=== PATIENT | male | born 1950 | race Caucasian/White ===

== ENCOUNTER → 2023-03-19 15:34 | Outpatient (CLI) | payer MEDICARE, SELFPAY ==
[2023-03-19 16:52] LABS: Add Manual Diff / Slide Review NO; Basophils Absolute Auto 100 /uL (0-100); Basophils Percent Auto 1.1 % (0-2); Eosinophils Absolute Auto 200 /uL (0-450); Hematocrit 38.9 % (41-53); Hemoglobin 13.3 g/dL (13.5-17.5); Lymphocytes Absolute Auto 1400 /uL (1100-4500); Lymphocytes Percent Auto 18.5 % (25-40); Mean Corpuscular HGB Conc 34.1 % (30-36); Mean Corpuscular Volume 85.1 fL (80-100); Monocytes Absolute Auto 500 /uL (0-900); Monocytes Percent Auto 7.4 % (3-14); Neutrophils Absolute Auto 5200 /uL (1500-7000); Platelet Count 246 X10^3/uL (150-400); Red Blood Cell Count 4.57 X10^6/uL (4.5-5.9); Red Cell Distribution Width 13.5 % (11.6-14.8); White Blood Cell Count 7.4 X10^3/uL (4.5-11.0)
[2023-03-19 17:03] LABS: Hemoglobin A1C% w Est Avg Glu 6.7 % (4.0-6.0)
[2023-03-19 17:09] LABS: Alanine Aminotransferase 22 IU/L (<50); Albumin 4.2 g/dL (3.5-5.0); Albumin Globulin Ratio 1.4 (1.0-2.8); Alkaline Phosphatase 68 U/L (38-126); Aspartate Aminotransferase 24 IU/L (17-59); BUN Creatinine Ratio 21.3 (6-22); Bilirubin Total 0.5 mg/dL (0.2-1.3); Blood Urea Nitrogen 20 mg/dL (9-20); Calcium 9.7 mg/dL (8.4-10.2); Carbon Dioxide 26 mmol/L (22-32); Chloride 104 mmol/L (98-107); Estimated Glomerular Filt Rate > 60 mL/min (>60); Glucose 104 mg/dL (80-110); HEMOLYSIS < 15 (0-50); Potassium 4.6 mmol/L (3.4-5.1); Sodium 138 mmol/L (137-145); Total Protein 7.2 g/dL (6.3-8.2)
[2023-03-19 18:34] LABS: Microalbumi Creatinin Ratio Ur 6.2 ug/mg CR (<30); Microalbumin Urine Random 0.6 mg/dL (0-1.6)
[2023-03-19 20:52] LABS: TSH w/ Reflex to FT4 1.38 uIU/mL (0.47-4.68)
== END ==
PROVIDERS: PCP Family Medicine; Referring Provider Family Medicine; Visit Provider Family Medicine
DX: E11.65 Type 2 diabetes mellitus with hyperglycemia (principal); I10 Essential (primary) hypertension; E78.5 Hyperlipidemia, unspecified; R53.83 Other fatigue; R63.4 Abnormal weight loss; R10.11 Right upper quadrant pain
CPT/HCPCS: 36415; 80053; 82043; 82570; 83036; 84443; 85025

== ENCOUNTER → 2023-03-22 11:22 | Outpatient (CLI) | payer MEDICARE, SELFPAY ==
--- NOTE | 2023-03-22 11:24 | DI.CT.S_ITS ---
PROCEDURE: CT ABDOMEN PELVIS W CON INDICATIONS: Upper abdominal pain. TECHNIQUE: After the administration of oral and IV contrast, axial sections were acquired from the lung bases to the pubic symphysis. Coronal and sagittal reformats were performed. For radiation dose reduction, the following was used: automated exposure control, adjustment of mA and/or kV according to patient size. COMPARISON: None. FINDINGS: Image quality: Excellent. Lung bases: Moderate left pleural effusion. Left basilar consolidation or atelectasis. Small hiatal hernia. Heart: No significant findings. ABDOMEN: Liver: There is a 1.2 cm cyst in the right hepatic lobe. No solid mass. Normal size. Mild hepatic steatosis. Gallbladder: No radiopaque gallstones or wall thickening. Biliary ducts: No biliary dilation. Pancreas: No ductal dilation. Spleen: Size is within normal limits. Adrenal Glands: No adrenal nodules. Kidneys and Ureters: A 2 mm nonobstructive stone is suspected in the inferior pole of the right kidney. No hydronephrosis. No solid mass. No complex renal cystic lesion which requires follow up. Stomach and Bowel: Stomach is unremarkable. Normal small bowel and colonic caliber, without significant wall thickening. Peritoneum: No abnormal intraperitoneal fluid. No free air. Ventral Wall: No hernia. Abdominal Nodes: No retroperitoneal or mesenteric adenopathy by size criteria. Vessels: Aorta and inferior vena cava are normal in size. PELVIS: Pelvic Organs: Unremarkable. Bladder: Unremarkable. Pelvic Nodes: No enlarged lymph nodes. Miscellaneous: No inguinal hernias are seen. Bones: Unremarkable. IMPRESSION: 1. Moderate left pleural effusion. Left basilar opacity may be pneumonia or atelectasis. 2. No acute abnormalities in abdomen or pelvis. 3. Mild hepatic steatosis. 4. A 2 mm nonobstructive right renal stone. Dictated by: Kaushik Peterson M.D. on 03/22/2023 at 13:59 Approved by: Kaushik Peterson M.D. on 03/22/2023 at 20:43
[2023-03-22 12:39] LABS: Cholesterol 130 mg/dL (140-199); HDL Cholesterol 37 mg/dL (40-60); LDL Cholesterol Calculated 75 mg/dL (<100); Triglycerides 89 mg/dL (35-150)
== END ==
PROVIDERS: PCP Family Medicine; Referring Provider Family Medicine; Visit Provider Family Medicine
DX: J90 Pleural effusion, not elsewhere classified (principal); K76.0 Fatty (change of) liver, not elsewhere classified; N20.0 Calculus of kidney; K44.9 Diaphragmatic hernia without obstruction or gangrene; R10.11 Right upper quadrant pain; E11.65 Type 2 diabetes mellitus with hyperglycemia; I10 Essential (primary) hypertension; E78.5 Hyperlipidemia, unspecified; R53.82 Chronic fatigue, unspecified; R63.4 Abnormal weight loss
CPT/HCPCS: 36415; 74177; 80061; Q9967

== ENCOUNTER → 2023-03-25 09:46 | Outpatient (CLI) | payer MEDICARE, SELFPAY ==
--- NOTE | 2023-03-25 09:47 | DI.RAD.S_ITS ---
PROCEDURE: XR CHEST 3V INDICATIONS: Left pleural effusion TECHNIQUE: 3 views of the chest were acquired. COMPARISON: [facility], CT, CT ABDOMEN PELVIS W CON, 03/22/2023, 12:55. FINDINGS: Surgical changes and devices: None. Lungs and pleura: Moderate partially layering left pleural effusion with compressive atelectasis in the left lung base. Right lung is clear. Mediastinum: Mediastinal contours are normal. Heart size is normal. Bones and chest wall: No suspicious bony abnormalities. Soft tissues appear unremarkable. IMPRESSION: Moderate partially layering left pleural effusion with compressive atelectasis in the left lung base. Dictated by: Simeon Gore M.D. on 03/25/2023 at 12:51 Approved by: Simeon Gore M.D. on 03/25/2023 at 12:52
== END ==
PROVIDERS: PCP Family Medicine; Referring Provider Family Medicine; Visit Provider Family Medicine
DX: J90 Pleural effusion, not elsewhere classified (principal); J98.11 Atelectasis
CPT/HCPCS: 71047

== ENCOUNTER 2023-03-28 14:06 | Emergency (ER) | payer MEDICARE, SELFPAY ==
[2023-03-28] VITALS (9 sets, daily range): BP systolic 115–133; BP diastolic 60–71; PULSE 82–93; RESP 17–18; TEMP 36.5; O2SAT 95–99; BMI 25.8
--- NOTE | 2023-03-28 14:23 | DI.RAD.S_ITS ---
PROCEDURE: XR CHEST 1V INDICATIONS: Shortness of breath TECHNIQUE: One view of the chest was acquired. COMPARISON: [facility], , XR CHEST 3V, 03/25/2023, 10:16. FINDINGS: Surgical changes and devices: None. Lungs and pleura: Moderate left pleural effusion appears mildly increased compared to prior. There is adjacent atelectasis versus consolidation. The right lung is clear. Mediastinum: Mediastinal contours appear normal. Heart size is normal. Bones and chest wall: No suspicious bony lesions. Overlying soft tissues appear unremarkable. IMPRESSION: Moderate left pleural effusion appears mildly increased compared to prior with adjacent atelectasis versus consolidation. Dictated by: Lorenzo Nixon M.D. on 03/28/2023 at 14:59 Approved by: Lorenzo Nixon M.D. on 03/28/2023 at 15:01
[2023-03-28 14:48] LABS: Add Manual Diff / Slide Review NO; Basophils Absolute Auto 100 /uL (0-100); Basophils Percent Auto 0.8 % (0-2); Eosinophils Absolute Auto 100 /uL (0-450); Eosinophils Percent Auto 1.4 % (2-4); Hematocrit 40.3 % (41-53); Hemoglobin 13.8 g/dL (13.5-17.5); Lymphocytes Absolute Auto 1100 /uL (1100-4500); Lymphocytes Percent Auto 11.6 % (25-40); Mean Corpuscular HGB Conc 34.2 % (30-36); Mean Corpuscular Hemoglobin 28.5 PG (26-34); Mean Corpuscular Volume 83.4 fL (80-100); Monocytes Absolute Auto 700 /uL (0-900); Monocytes Percent Auto 7.9 % (3-14); Neutrophils Absolute Auto 7400 /uL (1500-7000); Neutrophils Percent Auto 78.3 % (50-75); Platelet Count 249 X10^3/uL (150-400); Red Blood Cell Count 4.83 X10^6/uL (4.5-5.9); Red Cell Distribution Width 13.5 % (11.6-14.8); White Blood Cell Count 9.4 X10^3/uL (4.5-11.0)
[2023-03-28 14:58] LABS: INR 1.2 (0.9-1.3); Prothrombin Time 13.5 SECONDS (9.4-12.5)
[2023-03-28 15:02] LABS: Lactate (Lactic Acid) 1.1 mmol/L (0.7-2.1)
[2023-03-28 15:04] LABS: Alanine Aminotransferase 16 IU/L (<50); Albumin 4.2 g/dL (3.5-5.0); Albumin Globulin Ratio 1.2 (1.0-2.8); Alkaline Phosphatase 77 U/L (38-126); Aspartate Aminotransferase 19 IU/L (17-59); BUN Creatinine Ratio 23.6 (6-22); Bilirubin Total 0.6 mg/dL (0.2-1.3); Blood Urea Nitrogen 21 mg/dL (9-20); Calcium 9.5 mg/dL (8.4-10.2); Carbon Dioxide 26 mmol/L (22-32); Chloride 101 mmol/L (98-107); Estimated Glomerular Filt Rate > 60 mL/min (>60); Globulin 3.4 g/dL (1.7-4.1); Glucose 146 mg/dL (80-110); HEMOLYSIS < 15 (0-50); Potassium 4.9 mmol/L (3.4-5.1); Sodium 135 mmol/L (137-145); Total Protein 7.6 g/dL (6.3-8.2)
--- NOTE | 2023-03-28 15:12 | ED_ITS ---
HPI - General Adult General Chief complaint: Shortness of Breath/Dyspnea Stated complaint: states fluid in lungs worsening Time Seen by Provider: 03/28/23 15:11 Source: patient Mode of arrival: Ambulatory History of Present Illness HPI narrative: Patient is a 73-year-old male. He is here for evaluation of discomfort in the left side of his chest. This has been going on for several days. It is causing him to be short of breath. He has seen his primary doctor. Had a CT scan of his abdomen performed. A subsequent chest x-ray shows left-sided pleural effusion. He was scheduled to have this drained tomorrow here at this facility. He states that he just continues to have shortness of breath. Discomfort does seem to come and go. It seems that he is having 2 different pains on the left side of his chest. One of them is reproducible with palpation to his left lateral chest wall. The other 1 is more of a left upper quadrant abdominal pain. He was just very anxious about the symptoms. He was concerned that maybe he could not make it until tomorrow to get the thoracentesis. He denies fever. He does have a dry cough that is not new. Related Data Home Medications Medication Instructions Recorded Confirmed cyclobenzaprine 5 mg tablet 5 mg PO BEDTIME 03/19/23 03/19/23 Previous Rx's Medication Instructions Recorded atorvastatin 10 mg tablet 10 mg PO DAILY cholesterol #90 tabs 03/19/23 lisinopril 20 mg tablet 20 mg PO DAILY blood pressure #90 03/19/23 tabs metformin 500 mg tablet,extended 2,000 mg (4 x 500 mg) PO DAILY 03/19/23 release 24hr #360 tabs tramadol 50 mg tablet 50 mg PO Q6H PRN pain #10 tabs 03/28/23 Allergies Allergy/AdvReac Type Severity Reaction Status Date / Time No Known Drug Allergies Allergy Unverified 03/19/23 14:48 Review of Systems Constitutional Constitutional: Reports system reviewed and no additional complaints, except as documented Cardiovascular Cardiovascular: Reports system reviewed and no additional complaints, except as documented Respiratory Respiratory: Reports system reviewed and no additional complaints, except as documented Gastrointestinal Gastrointestinal: Reports system reviewed and no additional complaints, except as documented Integumentary/Breasts Skin/Breast: Reports system reviewed and no additional complaints, except as documented Hematologic/Lymphatic On Anticoagulants: No Patient History Medical History Pleural effusion, left Hiatal hernia Hyperlipidemia Benign essential HTN Type 2 diabetes mellitus with hyperglycemia, without long-term current use of insulin Social History Smoking Status: Former smoker Smoking Status: Former smoker Substance Use Type: marijuana Exam Initial Vital Signs Initial Vital Signs: Vital Signs Temperature 97.7 F 03/28/23 14:13 Pulse Rate 93 H 03/28/23 14:13 Respiratory Rate 18 03/28/23 14:13 Blood Pressure 129/67 03/28/23 14:13 Pulse Oximetry 99 03/28/23 14:13 Oxygen Delivery Method Room Air 03/28/23 14:13 Const General: cooperative, comfortable and No ill appearing HENMT Head: normal to inspection and normocephalic Chest Other: Rather pinpoint tenderness to palpation left mid/anterior axillary line along the ribs. Resp Effort & Inspection: normal respiratory effort Auscultation: clear to auscultation bilaterally Cardio Rate: regular rate Rhythm: regular rhythm GI Inspection: normal to inspection and non-distended Palpation: soft, No firm, No guarding and No tender Skin General: no rashes or lesions noted Neuro General: patient alert, patient awake and moves all extremities Extrem General: capillary refill normal Course Orders Ordered: ED Orders 03/28/23 14:23 XR chest 1V Stat Measure peak expiratory flow ONCE RT Consult Eval and Treat NOW 03/28/23 14:29 EKG-12 Lead Stat 03/28/23 14:35 Complete Blood Count AUTO DIFF Stat Comprehensive Metabolic Panel Stat Lactate (Lactic Acid) Stat NT-proBNP (BNP-Adult 18+) Stat Prothrombin Time INR Stat Troponin I Stat Vital Signs Vital signs: Vital Signs - 8 hr 03/28/23 14:13 03/28/23 14:23 03/28/23 14:23 Temperature 97.7 F Pulse Rate 93 H 92 H Respiratory Rate 18 Blood Pressure 129/67 133/71 Pulse Oximetry 99 97 Oxygen Delivery Method Room Air 03/28/23 14:30 03/28/23 15:00 03/28/23 15:30 Temperature Pulse Rate 90 86 84 Respiratory Rate 18 Blood Pressure Pulse Oximetry 97 96 95 Oxygen Delivery Method 03/28/23 16:00 Temperature Pulse Rate 82 Respiratory Rate 17 Blood Pressure Pulse Oximetry 95 Oxygen Delivery Method Room Air Medical Decision Making Lab Data Lab results reviewed: Yes I reviewed the patient's lab results. 03/28/23 14:35 03/28/23 14:35 Labs: Lab Results 03/28/23 Range/Units 14:35 WBC 9.4 (4.5-11.0) X10^3/uL RBC 4.83 (4.5-5.9) X10^6/uL Hgb 13.8 (13.5-17.5) g/dL Hct 40.3 L (41-53) % MCV 83.4 (80-100) fL MCH 28.5 (26-34) PG MCHC 34.2 (30-36) % RDW 13.5 (11.6-14.8) % Plt Count 249 (150-400) X10^3/uL Neut % (Auto) 78.3 H (50-75) % Lymph % (Auto) 11.6 L (25-40) % Beaver % (Auto) 7.9 (3-14) % Eos % (Auto) 1.4 L (2-4) % Baso % (Auto) 0.8 (0-2) % Neut # (Auto) 7400 H (5752-4052) /uL Lymph # (Auto) 1100 (7361-2734) /uL Beaver # (Auto) 700 (0-900) /uL Eos # (Auto) 100 (0-450) /uL Baso # (Auto) 100 (0-100) /uL PT 13.5 H (9.4-12.5) SECONDS INR 1.2 (0.9-1.3) Sodium 135 L (137-145) mmol/L Potassium 4.9 (3.4-5.1) mmol/L Chloride 101 (98-107) mmol/L Carbon Dioxide 26 (22-32) mmol/L BUN 21 H (9-20) mg/dL Creatinine 0.89 (0.66-1.25) mg/dL Estimated GFR > 60 (>60) mL/min BUN/Creatinine Ratio 23.6 H (6-22) Glucose 146 H (80-110) mg/dL Lactate 1.1 (0.7-2.1) mmol/L Calcium 9.5 (8.4-10.2) mg/dL Total Bilirubin 0.6 (0.2-1.3) mg/dL AST 19 (17-59) IU/L ALT 16 (<50) IU/L Alkaline Phosphatase 77 (38-126) U/L Troponin I < 0.012 (0.01-0.034) ng/mL NT-Pro-B Natriuret Pep < 20 (<125) pg/mL Total Protein 7.6 (6.3-8.2) g/dL Albumin 4.2 (3.5-5.0) g/dL Globulin 3.4 (1.7-4.1) g/dL Albumin/Globulin Ratio 1.2 (1.0-2.8) Imaging Data Chest x-ray: Radiologist's Impression: PROCEDURE: XR CHEST 1V INDICATIONS: Shortness of breath TECHNIQUE: One view of the chest was acquired. COMPARISON: [facility], , XR CHEST 3V, 03/25/2023, 10:16. FINDINGS: Surgical changes and devices: None. Lungs and pleura: Moderate left pleural effusion appears mildly increased compared to prior. There is adjacent atelectasis versus consolidation. The right lung is clear. Mediastinum: Mediastinal contours appear normal. Heart size is normal. Bones and chest wall: No suspicious bony lesions. Overlying soft tissues appear unremarkable. IMPRESSION: Moderate left pleural effusion appears mildly increased compared to prior with adjacent atelectasis versus consolidation. ECG Data Attestation: I personally reviewed and interpreted this ECG as follows: Interpretation: Sinus rhythm Ventricular rate 91 Normal axis Normal QRS Normal QTC No ST T wave changes MDM Narrative Medical decision making narrative: Labs here unremarkable. He is not hypoxic. Not tachypneic. Chest x-ray shows left-sided pleural effusion. He was scheduled to have this drained tomorrow. No skin changes over the area where he is having discomfort which makes zoster unlikely. It does seem to be very localized to his left anterior/mid axillary line mid ribs. Low suspicion for fracture. He is no abdominal tenderness today. We contacted the lab and they were going to run all of the labs that he was required to have tomorrow prior to the drainage of his pleural effusion. He was advised that he needs to continue with this appointment but he does not need to have labs drawn. He was scheduled to see his primary doctor after the labs are drawn. Will discharge patient home with return precautions. He expressed understanding and agreement with plan. Discharge Plan Departure Patient Disposition: Home Clinical Impression: Pleural effusion on left Instructions: DI for Pleural Effusion Activity Restrictions/Additional Instructions: I recommend that you keep your appointment that is scheduled to have the lung fluid drained. Recommend you contact your primary doctor afterwards for a follow-up. Return to the emergency department for new symptoms. Prescriptions: New tramadol 50 mg tablet 50 mg PO Q6H PRN (Reason: pain) Qty: 10 0RF No Action cyclobenzaprine 5 mg tablet 5 mg PO BEDTIME atorvastatin 10 mg tablet 10 mg PO DAILY Qty: 90 3RF lisinopril 20 mg tablet 20 mg PO DAILY Qty: 90 3RF metformin 500 mg tablet extended release 24hr 2,000 mg PO DAILY Qty: 360 3RF Referrals: Ej Espinoza DO [Primary Care Provider] - Stand Alone Forms: Patient Portal/API
[2023-03-28 15:14] LABS: NT-proBNP (BNP-Adult 18+) < 20 pg/mL (<125); Troponin I < 0.012 ng/mL (0.01-0.034)
--- NOTE | 2023-03-28 15:14 | PC.NURSE ---
Pt denies pain at rest, but when he moves pt states having 10/10 shooting pain in his left lower chest. Pain is relieved by leaning over a table. Pt reports living on [facility] and wanting to be evaluated before going [place] and [place].
== END 2023-03-28 16:46 | disposition home or self-care (01) ==
PROVIDERS: Emergency Provider Emergency Medicine; PCP Family Medicine
DX: J90 Pleural effusion, not elsewhere classified (principal); R07.9 Chest pain, unspecified
CPT/HCPCS: 36415; 71045; 80053; 83605; 83880; 84484; 85025; 85610; 93005; 93010; 99284

== ENCOUNTER → 2023-03-29 10:31 | Outpatient (CLI) | payer MEDICARE, SELFPAY ==
[2023-03-29 14:35] LABS: Body Fluid Red Blood Cells 17488 /uL; Body Fluid Tot Nucleated Cells 6335 /uL
[2023-03-29 15:45] LABS: Eosinophils Body Fluid 0 %; Mononuclear WBC Body Fluid 15 %; Polynuclear WBC Body Fluid 77 %
[2023-03-29 15:46] LABS: Other Cells Body Fluid 8 %
[2023-03-29 17:32] LABS: Body Fluid Appearance CLOUDY; Body Fluid Clotted? NO CLOTS PRESENT; Body Fluid Color BLOODY
== END ==
PROVIDERS: PCP Family Medicine; Visit Provider Family Medicine
DX: J90 Pleural effusion, not elsewhere classified (principal)
CPT/HCPCS: 87070; 87075; 87205; 89051

== ENCOUNTER → 2023-03-29 12:30 | Outpatient (CLI) | payer MEDICARE, SELFPAY ==
--- NOTE | 2023-03-29 | DI.RAD.S_ITS ---
PROCEDURE: XR CHEST 2V INDICATIONS: POST THORACENTESIS TECHNIQUE: 2 views of the chest were acquired. COMPARISON: [facility], CT, CT ABDOMEN PELVIS W CON, 03/22/2023, 12:55. [facility], CR, XR CHEST 1V, 03/28/2023, 14:29. FINDINGS: Surgical changes and devices: None. Lungs and pleura: No pneumothorax. Moderate left pleural effusion, decreased. Left lower lobe opacity is stable to decreased. No right pleural effusion. Mediastinum: Mediastinal contours are normal. Heart size is normal. Bones and chest wall: No suspicious bony abnormalities. Soft tissues appear unremarkable. IMPRESSION: No pneumothorax. Moderate left pleural effusion. Dictated by: Mahesh Raines M.D. on 03/29/2023 at 13:48 Approved by: Mahesh Raines M.D. on 03/29/2023 at 13:51
--- NOTE | 2023-03-29 12:32 | DI.US.S_ITS ---
PROCEDURE: US THORACENTESIS INDICATIONS: Lt Pleural effusion TECHNIQUE: The indications, alternatives, benefits, risks, and complications of the procedure were explained to the patient. Written informed consent was obtained and placed in the chart. The chest was examined sonographically, and an appropriate site was chosen for thoracentesis. The skin was prepared and draped in the usual sterile fashion, and 1% lidocaine was infiltrated from the skin down through the pleural surface. A 19-gauge catheter-covered needle was then introduced into the pleural space, the catheter was advanced and the needle was withdrawn, and thereafter pleural fluid was aspirated. The catheter was then removed and a dressing was applied. COMPARISON: [facility], CT, CT ABDOMEN PELVIS W CON, 03/22/2023, 12:55. FINDINGS: Access site: Left hemithorax. Needle: One-Step centesis catheter with introducer needle. Fluid volume and description: 1040 cc clear red tinged Fluid sent for diagnostic testing: Multiple labs pending. Medications: 1% lidocaine for local anaesthesia. Complications: No pneumothorax on post thoracentesis CXR. The patient experienced increased chest pain and nodule post procedure. Patient was evaluated. Oxygen saturations 93%. Heart rate 107. Ultimately the decision was to be evaluated in the emergency room. IMPRESSION: Successful diagnostic and therapeutic ultrasound-guided left thoracentesis. Dictated by: Mahesh Raines M.D. on 03/29/2023 at 14:37 Approved by: Mahesh Raines M.D. on 03/29/2023 at 14:40
== END ==
PROVIDERS: PCP Family Medicine; Referring Provider Family Medicine; Visit Provider Family Medicine
DX: J90 Pleural effusion, not elsewhere classified (principal)
CPT/HCPCS: 32555; 71046

== ENCOUNTER 2023-03-29 14:11 | Emergency (ER) | payer MEDICARE, SELFPAY ==
[2023-03-29] VITALS (19 sets, daily range): BP systolic 107–150; BP diastolic 55–86; PULSE 89–109; RESP 15–23; TEMP 36.8; O2SAT 94–98; BMI 25.8
--- NOTE | 2023-03-29 14:16 | DI.RAD.S_ITS ---
PROCEDURE: XR CHEST 1V INDICATIONS: chest pain, s/p thoracentesis today, left sided 1150ml remov TECHNIQUE: One view of the chest was acquired. COMPARISON: [facility], , XR CHEST 2V, 03/29/2023, 13:40. FINDINGS: Surgical changes and devices: None. Lungs and pleura: Dense atelectasis versus consolidation, left lung base. Small left pleural effusion. No pneumothorax. Findings are not significantly different than the previous study. Mediastinum: Mediastinal contours appear normal. Heart size is normal. Bones and chest wall: No suspicious bony lesions. Overlying soft tissues appear unremarkable. IMPRESSION: Dense atelectasis versus consolidation, left lung base. Small left pleural effusion. No pneumothorax. Dictated by: Simeon Gore M.D. on 03/29/2023 at 14:55 Approved by: Simeon Gore M.D. on 03/29/2023 at 14:56
--- NOTE | 2023-03-29 14:18 | ED.CHESTPAIN ---
HPI - Chest Pain General Chief Complaint: Chest Pain Stated Complaint: Chest Pain post Thoracentesis Time Seen by Provider: 03/29/23 14:16 Source: patient, RN notes reviewed and old records reviewed Mode of arrival: Wheelchair Limitations: no limitations History of Present Illness HPI narrative: 73-year-old male presents with complaint of left-sided pain in his chest. Patient is status post thoracentesis today almost immediately afterwards he had 1142 mL removed which was strawberry colored and promptly began to have increasing left chest pain. Patient seems most uncomfortable when he tries to sit back he prefers to stand. Patient states deep inhalation is quite painful. He states he has not really been coughing. He states he was not having much pain before. He was seen on 03/28/2023 for left-sided chest pain which showed a left pleural effusion with plan for thoracentesis today. No syncope, he has been nauseated but states that is somewhat better. He denies any GI or urinary symptoms. Patient states he was prescribed tramadol but has not started taking any. He is normally on medication for blood pressure, diabetes and dyslipidemia. Denies any drug allergies. Former smoker, does use THC. No other recreational drugs. Related Data Home Medications Medication Instructions Recorded Confirmed cyclobenzaprine 5 mg tablet 5 mg PO BEDTIME 03/19/23 03/19/23 Previous Rx's Medication Instructions Recorded atorvastatin 10 mg tablet 10 mg PO DAILY cholesterol #90 tabs 03/19/23 lisinopril 20 mg tablet 20 mg PO DAILY blood pressure #90 03/19/23 tabs metformin 500 mg tablet,extended 2,000 mg (4 x 500 mg) PO DAILY 03/19/23 release 24hr #360 tabs tramadol 50 mg tablet 50 mg PO Q6H PRN pain #10 tabs 03/28/23 meloxicam 7.5 mg tablet 7.5 mg PO BID PRN pain #10 tabs 03/29/23 oxycodone 5 mg tablet 5 mg PO Q6H PRN pain #7 tabs 03/29/23 Allergies Allergy/AdvReac Type Severity Reaction Status Date / Time No Known Drug Allergies Allergy Verified 03/29/23 14:21 Review of Systems Review of Systems ROS Unobtainable: All systems reviewed & are unremarkable except as noted in HPI and below Patient History Medical History Pleural effusion, left Hiatal hernia Hyperlipidemia Benign essential HTN Type 2 diabetes mellitus with hyperglycemia, without long-term current use of insulin Social History Smoking Status: Former smoker Smoking Status: Former smoker Substance Use Type: marijuana Exam Narrative Exam Narrative: GENERAL: Alert and oriented x three, male in moderate distress. No diaphoresis. HEENT: Head normocephalic, atraumatic, EOMI, pupils reactive, face symmetric, moist mucous membranes NECK: Supple, full range of motion CARDIOVASCULAR: Regular rate and rhythm without murmurs, rubs or gallops. No reproducible chest pain. Patient has a Band-Aid over the left midthoracic. RESPIRATORY: Breath sounds equal bilaterally, no wheezes rales or rhonchi. No tachypnea or accessory muscle use. Patient is able to speak in full sentences. ABDOMEN: Soft, nontender. Normoactive bowel sounds all 4 quadrants. No guarding or rebound, rigidity, no mass : No CVA tenderness BACK: No cervical, thoracic or lumbar vertebral point tenderness. Patient has decreased range of motion, patient is quite uncomfortable any time he tries to sit down he is much more comfortable standing. Patient's gait is antalgic. 5/5 muscle strength upper and lower extremities. EXTREMITIES: Normal range of motion, no clubbing or edema. Neurovascularly intact NEUROLOGICAL: Cranial nerves II through XII grossly intact. Moving all extremities SKIN: Warm, dry, no petechiae, no rashes or lesions. Initial Vital Signs Initial Vital Signs: Vital Signs Temperature 98.2 F 03/29/23 14:11 Pulse Rate 106 H 03/29/23 14:11 Respiratory Rate 21 03/29/23 14:11 Blood Pressure 150/70 H 03/29/23 14:11 Pulse Oximetry 98 03/29/23 14:11 Oxygen Delivery Method Room Air 03/29/23 14:11 Course Orders Ordered: ED Orders 03/29/23 14:16 XR chest 1V Stat 03/29/23 14:17 Type and Screen Stat 03/29/23 14:21 EKG-12 Lead Stat 03/29/23 14:25 Complete Blood Count AUTO DIFF Stat Comprehensive Metabolic Panel Stat Lipase Stat NT-proBNP (BNP-Adult 18+) Stat PTT Partial Thromboplastin [place] Stat Prothrombin Time INR Stat Troponin & CK Cardiac Panel Stat 03/29/23 15:19 CT chest w con Stat Discontinued Medications Sodium Chloride (Normal Saline 0.9%) 1,000 mls @ 1,000 mls/hr IV BOLUS ONE Stop: 03/29/23 15:15 Last Infusion: 03/29/23 15:32 Dose: Infused Documented By: Admin: 03/29/23 14:25 Dose: 1,000 mls/hr Documented By: BS Ketorolac Tromethamine (Ketorolac 30 Mg/Ml Vial) 15 mg IV NOW ONE Stop: 03/29/23 15:22 Last Admin: 03/29/23 15:33 Dose: 15 mg Documented By: RB Morphine Sulfate (Morphine 4 Mg/Ml Inj) 4 mg IV NOW ONE Stop: 03/29/23 14:17 Last Admin: 03/29/23 14:25 Dose: 4 mg Documented By: GEOVANY Morphine Sulfate (Morphine 4 Mg/Ml Inj) 4 mg IV NOW ONE Stop: 03/29/23 14:56 Last Admin: 03/29/23 14:59 Dose: 4 mg Documented By: RB Ondansetron HCl (Ondansetron 4 Mg/2 Ml Inj) 4 mg IV NOW ONE Stop: 03/29/23 14:20 Last Admin: 03/29/23 14:24 Dose: 4 mg Documented By: GEOVANY Vital Signs Vital signs: Vital Signs - 8 hr 03/29/23 14:11 03/29/23 14:18 03/29/23 14:19 Temperature 98.2 F Pulse Rate 106 H 109 H Respiratory Rate 21 Blood Pressure 150/70 H 150/70 H Pulse Oximetry 98 95 Oxygen Delivery Method Room Air 03/29/23 14:19 03/29/23 14:30 03/29/23 14:30 Temperature Pulse Rate 109 H 104 H Respiratory Rate 23 19 Blood Pressure 120/55 L Pulse Oximetry 96 95 Oxygen Delivery Method Room Air 03/29/23 14:45 03/29/23 14:45 03/29/23 15:00 Temperature Pulse Rate 100 H Respiratory Rate 17 Blood Pressure 129/58 L 131/63 Pulse Oximetry 95 Oxygen Delivery Method 03/29/23 15:00 03/29/23 15:15 03/29/23 15:15 Temperature Pulse Rate 101 H 96 H Respiratory Rate 20 15 Blood Pressure 115/57 L Pulse Oximetry 94 Oxygen Delivery Method 03/29/23 15:30 03/29/23 15:38 03/29/23 15:38 Temperature Pulse Rate 98 H 98 H Respiratory Rate 19 19 Blood Pressure 119/86 Pulse Oximetry 95 96 Oxygen Delivery Method 03/29/23 15:44 03/29/23 15:45 03/29/23 15:45 Temperature Pulse Rate 97 H 97 H Respiratory Rate 19 19 Blood Pressure 107/62 Pulse Oximetry 96 95 Oxygen Delivery Method 03/29/23 16:08 03/29/23 16:09 03/29/23 16:09 Temperature Pulse Rate 94 H 92 H Respiratory Rate 17 Blood Pressure 115/55 L Pulse Oximetry 95 95 Oxygen Delivery Method 03/29/23 16:14 03/29/23 16:15 03/29/23 16:15 Temperature Pulse Rate 92 H 92 H Respiratory Rate 16 16 Blood Pressure 115/55 L Pulse Oximetry 95 95 Oxygen Delivery Method 03/29/23 16:30 03/29/23 16:30 03/29/23 16:45 Temperature Pulse Rate 89 Respiratory Rate 15 Blood Pressure 114/55 L 122/64 Pulse Oximetry 95 Oxygen Delivery Method 03/29/23 16:45 03/29/23 17:00 03/29/23 17:05 Temperature 98.2 F Pulse Rate 90 90 Respiratory Rate 16 Blood Pressure Pulse Oximetry 95 Oxygen Delivery Method MDM - Chest Pain Lab Data 03/29/23 14:25 03/29/23 14:25 Labs: Lab Results 03/29/23 Range/Units 14:25 WBC 14.6 H D (4.5-11.0) X10^3/uL RBC 4.83 (4.5-5.9) X10^6/uL Hgb 13.8 (13.5-17.5) g/dL Hct 40.5 L (41-53) % MCV 83.8 (80-100) fL MCH 28.5 (26-34) PG MCHC 34.0 (30-36) % RDW 13.9 (11.6-14.8) % Plt Count 356 (150-400) X10^3/uL Neut % (Auto) 89.1 H (50-75) % Lymph % (Auto) 4.6 L (25-40) % [place] % (Auto) 5.3 (3-14) % Eos % (Auto) 0.2 L (2-4) % Baso % (Auto) 0.8 (0-2) % Neut # (Auto) 86016 H (2554-6216) /uL Lymph # (Auto) 700 L (5982-6007) /uL [place] # (Auto) 800 (0-900) /uL Eos # (Auto) 0 (0-450) /uL Baso # (Auto) 100 (0-100) /uL PT 13.7 H (9.4-12.5) SECONDS INR 1.2 (0.9-1.3) APTT 29 (25.1-36.5) SECONDS Sodium 133 L (137-145) mmol/L Potassium 5.4 H (3.4-5.1) mmol/L Chloride 98 (98-107) mmol/L Carbon Dioxide 25 (22-32) mmol/L BUN 25 H (9-20) mg/dL Creatinine 0.97 (0.66-1.25) mg/dL Estimated GFR > 60 (>60) mL/min BUN/Creatinine Ratio 25.8 H (6-22) Glucose 201 H (80-110) mg/dL Calcium 9.6 (8.4-10.2) mg/dL Total Bilirubin 0.8 (0.2-1.3) mg/dL AST 21 (17-59) IU/L ALT 17 (<50) IU/L Alkaline Phosphatase 90 (38-126) U/L Total Creatine Kinase 53 L (55-170) U/L Troponin I < 0.012 (0.01-0.034) ng/mL NT-Pro-B Natriuret Pep 31 (<125) pg/mL Total Protein 8.1 (6.3-8.2) g/dL Albumin 4.5 (3.5-5.0) g/dL Globulin 3.6 (1.7-4.1) g/dL Albumin/Globulin Ratio 1.3 (1.0-2.8) Lipase 36 (23-300) U/L Imaging Data Chest x-ray: Radiologist's Impression: [address] [address] XRay Report Signed Patient: Blaze Dickinson MR#: [id number] : 1950 Acct:[id number] Age/Sex: 73 / M Date of Service: 03/29/23 Loc: ED Accession Number: [id number] Procedure: XR chest 1V Ordering Provider: Milagro Carnes D.O. PROCEDURE: XR CHEST 1V INDICATIONS: chest pain, s/p thoracentesis today, left sided 1150ml remov TECHNIQUE: One view of the chest was acquired. COMPARISON: [facility], CR, XR CHEST 2V, 03/29/2023, 13:40. FINDINGS: Surgical changes and devices: None. Lungs and pleura: Dense atelectasis versus consolidation, left lung base. Small left pleural effusion. No pneumothorax. Findings are not significantly different than the previous study. Mediastinum: Mediastinal contours appear normal. Heart size is normal. Bones and chest wall: No suspicious bony lesions. Overlying soft tissues appear unremarkable. IMPRESSION: Dense atelectasis versus consolidation, left lung base. Small left pleural effusion. No pneumothorax. Dictated by: Simeon Gore M.D. on 03/29/2023 at 14:55 Approved by: Simeon Gore M.D. on 03/29/2023 at 14:56 CT scan - chest: Radiologist's Impression: [place] [address] CT Scan Report Signed Patient: Blaze Dickinson MR#: [id number] : 1950 Acct:[id number] Age/Sex: 73 / M Date of Service: 03/29/23 Loc: ED Accession Number: [id number] Procedure: CT chest w con Ordering Provider: Milagro Carnes D.O. PROCEDURE: CT CHEST W CON INDICATIONS: Left chest pain, s/p thoracentesis TECHNIQUE: After the administration of intravenous contrast, 5 mm thick sections acquired from the pulmonary apices to the posterior costophrenic angles. 1 mm axial lung, 5 mm thick coronal and sagittal reformats and 7 mm axial MIP were acquired. For radiation dose reduction, the following was used: automated exposure control, adjustment of mA and/or kV according to patient size. COMPARISON: None. FINDINGS: Image quality: Diagnostic. Lower Neck: No enlarged lymph nodes. Thyroid: No thyroid nodules which require sonographic follow up, per consensus guidelines. Axillae: No enlarged lymph nodes. Chest Wall: No abnormal findings in the chest wall. No hematoma.. Bones: Unremarkable. Lungs and Pleura: Small left-sided pleural effusion. No pneumothorax. Passive atelectasis of the left lower lobe and lingula. Heart: Heart size is normal. No pericardial effusion. Thoracic Vessels: The aorta and pulmonary arteries demonstrate normal size. Mediastinum and Judy: No enlarged lymph nodes. Calcified mediastinal and hilar nodes. Esophagus: No wall thickening. No hiatal hernia. Upper Abdomen: Unchanged hypoattenuating liver lesion. IMPRESSION: No abnormal findings in the chest wall. No hematoma. Small left pleural effusion with passive atelectasis of the left lower lobe and lingula. Dictated by: Juan Miguel Garsia M.D. on 03/29/2023 at 16:23 Approved by: Juan Miguel Garsia M.D. on 03/29/2023 at 16:25 ECG Data Attestation: I personally reviewed and interpreted this ECG as follows: Interpretation: Sinus tachycardia rate of 107 MO 160 QRS of 104 QTC of 472. No acute ST elevation or depression noted. MDM Narrative Medical decision making narrative: Patient was brought over from outpatient radiology status post thoracentesis quite painful but seems to be somewhat also positional. Plan for repeat chest x-ray although he did have 1 did not appear to show pneumothorax did appear to show a decrease in his pleural effusion. Labs labs show leukocytosis of 14 otherwise appropriately hemoglobin and platelets. INR is 1.2 sodium is 133 potassium is 5 4 with BUN 25 otherwise appropriate renal function glucose of 201 LFTs are negative. EKG shows sinus tachycardia, this has resolved while patient has been here with fluids. Chest x-ray showed dense atelectasis versus consolidation left lung base, small left pleural effusion no pneumothorax. Patient had CT chest is had persistent significant pain despite several doses of pain medication. CT chest shows some small left pleural effusion with passive atelectasis left lower lobe and lingula. No pneumothorax, no acute bleeding. Patient then received a dose of Toradol has been much more helpful for controlling his pain. Patient has not been hypoxic blood pressure has been appropriate with improved heart rate. Patient is felt appropriate for discharge home with course of pain medication and follow up. Discharge Plan Departure Patient Disposition: Home Clinical Impression: S/P thoracentesis, Chest pain Activity Restrictions/Additional Instructions: Your workup today shows some atelectasis or your lungs still inflating at a small amount of fluid on the left but no pneumothorax, bleed or other significant changes. Please follow-up for recheck. I would recommend Tylenol and/or ibuprofen as needed for pain. If in adequate you can take meloxicam 1 tablet every 12 hours as needed for pain. Do not take ibuprofen or other NSAIDs with this medication. You can take the tramadol that you have been prescribed 1-2 tablets every 6 hours as needed. This is a narcotic but you can take it with the Tylenol and meloxicam. Prescription sent to [facility] in [place]. Please return for new or worsening chest pain, shortness of breath, lightheadedness or passing out, persistent vomiting or other new or concerning changes. Prescriptions: New meloxicam 7.5 mg tablet 7.5 mg PO BID PRN (Reason: pain) Qty: 10 0RF oxycodone 5 mg tablet 5 mg PO Q6H PRN (Reason: pain) Qty: 7 0RF No Action cyclobenzaprine 5 mg tablet 5 mg PO BEDTIME atorvastatin 10 mg tablet 10 mg PO DAILY Qty: 90 3RF lisinopril 20 mg tablet 20 mg PO DAILY Qty: 90 3RF metformin 500 mg tablet extended release 24hr 2,000 mg PO DAILY Qty: 360 3RF tramadol 50 mg tablet 50 mg PO Q6H PRN (Reason: pain) Qty: 10 0RF Referrals: Ej Espinoza DO [Primary Care Provider] - Stand Alone Forms: Patient Portal/API
[2023-03-29] MEDS: ONDANSETRON 4 MG/2 ML INJ IV (14:24)
[2023-03-29] MEDS: MORPHINE 4 MG/ML INJ IV ×2 (14:25→14:59)
[2023-03-29] MEDS: SODIUM CHLORIDE 0.9% 1,000 ML 1000 ML IV (14:25)
[2023-03-29 14:41] LABS: Add Manual Diff / Slide Review NO; Basophils Absolute Auto 100 /uL (0-100); Basophils Percent Auto 0.8 % (0-2); Eosinophils Absolute Auto 0 /uL (0-450); Eosinophils Percent Auto 0.2 % (2-4); Hematocrit 40.5 % (41-53); Hemoglobin 13.8 g/dL (13.5-17.5); Lymphocytes Absolute Auto 700 /uL (1100-4500); Lymphocytes Percent Auto 4.6 % (25-40); Mean Corpuscular Hemoglobin 28.5 PG (26-34); Mean Corpuscular Volume 83.8 fL (80-100); Monocytes Absolute Auto 800 /uL (0-900); Monocytes Percent Auto 5.3 % (3-14); Neutrophils Absolute Auto 13000 /uL (1500-7000); Neutrophils Percent Auto 89.1 % (50-75); Platelet Count 356 X10^3/uL (150-400); Red Blood Cell Count 4.83 X10^6/uL (4.5-5.9); Red Cell Distribution Width 13.9 % (11.6-14.8); White Blood Cell Count 14.6 X10^3/uL (4.5-11.0)
[2023-03-29 14:58] LABS: INR 1.2 (0.9-1.3); Prothrombin Time 13.7 SECONDS (9.4-12.5)
[2023-03-29 15:01] LABS: PTT Partial Thromboplastin Tim 29 SECONDS (25.1-36.5)
[2023-03-29 15:04] LABS: Alanine Aminotransferase 17 IU/L (<50); Albumin 4.5 g/dL (3.5-5.0); Albumin Globulin Ratio 1.3 (1.0-2.8); Alkaline Phosphatase 90 U/L (38-126); Aspartate Aminotransferase 21 IU/L (17-59); BUN Creatinine Ratio 25.8 (6-22); Bilirubin Total 0.8 mg/dL (0.2-1.3); Blood Urea Nitrogen 25 mg/dL (9-20); Calcium 9.6 mg/dL (8.4-10.2); Carbon Dioxide 25 mmol/L (22-32); Chloride 98 mmol/L (98-107); Creatine Kinase 53 U/L (55-170); Estimated Glomerular Filt Rate > 60 mL/min (>60); Globulin 3.6 g/dL (1.7-4.1); Glucose 201 mg/dL (80-110); HEMOLYSIS < 15 (0-50); Lipase 36 U/L (23-300); Potassium 5.4 mmol/L (3.4-5.1); Sodium 133 mmol/L (137-145); Total Protein 8.1 g/dL (6.3-8.2)
[2023-03-29 15:14] LABS: NT-proBNP (BNP-Adult 18+) 31 pg/mL (<125); Troponin I < 0.012 ng/mL (0.01-0.034)
--- NOTE | 2023-03-29 15:19 | DI.CT.S_ITS ---
PROCEDURE: CT CHEST W CON INDICATIONS: Left chest pain, s/p thoracentesis TECHNIQUE: After the administration of intravenous contrast, 5 mm thick sections acquired from the pulmonary apices to the posterior costophrenic angles. 1 mm axial lung, 5 mm thick coronal and sagittal reformats and 7 mm axial MIP were acquired. For radiation dose reduction, the following was used: automated exposure control, adjustment of mA and/or kV according to patient size. COMPARISON: None. FINDINGS: Image quality: Diagnostic. Lower Neck: No enlarged lymph nodes. Thyroid: No thyroid nodules which require sonographic follow up, per consensus guidelines. Axillae: No enlarged lymph nodes. Chest Wall: No abnormal findings in the chest wall. No hematoma.. Bones: Unremarkable. Lungs and Pleura: Small left-sided pleural effusion. No pneumothorax. Passive atelectasis of the left lower lobe and lingula. Heart: Heart size is normal. No pericardial effusion. Thoracic Vessels: The aorta and pulmonary arteries demonstrate normal size. Mediastinum and Judy: No enlarged lymph nodes. Calcified mediastinal and hilar nodes. Esophagus: No wall thickening. No hiatal hernia. Upper Abdomen: Unchanged hypoattenuating liver lesion. IMPRESSION: No abnormal findings in the chest wall. No hematoma. Small left pleural effusion with passive atelectasis of the left lower lobe and lingula. Dictated by: Juan Miguel Garsia M.D. on 03/29/2023 at 16:23 Approved by: Juan Miguel Garsia M.D. on 03/29/2023 at 16:25
[2023-03-29] MEDS: KETOROLAC 30 MG/ML VIAL 15 MG IV (15:33)
== END 2023-03-29 17:05 | disposition home or self-care (01) ==
PROVIDERS: Emergency Provider Emergency Medicine; PCP Family Medicine
DX: R07.9 Chest pain, unspecified (principal); R00.0 Tachycardia, unspecified; J90 Pleural effusion, not elsewhere classified; Z98.890 Other specified postprocedural states
CPT/HCPCS: 32555; 36415; 71045; 71046; 71260; 80053; 82550; 83690; 83880; 84484; 85025; 85610; 85730; 87070; 87075; 87205; 89051; 93005; 93010; 96361; 96374; 96375; 96376; 99284; J1885; J2270; J2405

== ENCOUNTER 2023-03-31 19:36 | Emergency (ER) | payer MEDICARE, SELFPAY ==
[2023-03-31] VITALS (7 sets, daily range): BP systolic 108–143; BP diastolic 57–75; PULSE 88–100; RESP 15–22; TEMP 36.9; O2SAT 91–96; BMI 25.9
--- NOTE | 2023-03-31 20:26 | ED_ITS ---
HPI - General Adult General Chief complaint: Fever Stated complaint: fever, chest pain Time Seen by Provider: 03/31/23 20:00 Source: patient Mode of arrival: Ambulatory History of Present Illness HPI narrative: 73-year-old gentleman with recently diagnosed pleural effusion, thoracentesis on the . He has been having increasing left-sided chest pain, unable to take a deep breath with temperatures in the 100 range and he comes back in for further evaluation. He is not complaining of overt dyspnea beyond pain related unable to fully expand his lungs. He is having no palpitations, no lower extremity edema, no headaches. He notes that he has been significantly constipated. He is currently using meloxicam and oxycodone that is left over from a dental surgery. He has been taking 10 mg every 6 hours and finding that it is inade quate. He does note that he has never had adequate control of his thoracic pain since the thoracentesis on the . Related Data Home Medications Medication Instructions Recorded Confirmed cyclobenzaprine 5 mg tablet 5 mg PO BEDTIME 03/19/23 03/19/23 Previous Rx's Medication Instructions Recorded atorvastatin 10 mg tablet 10 mg PO DAILY cholesterol #90 tabs 03/19/23 lisinopril 20 mg tablet 20 mg PO DAILY blood pressure #90 03/19/23 tabs metformin 500 mg tablet,extended 2,000 mg (4 x 500 mg) PO DAILY 03/19/23 release 24hr #360 tabs tramadol 50 mg tablet 50 mg PO Q6H PRN pain #10 tabs 03/28/23 meloxicam 7.5 mg tablet 7.5 mg PO BID PRN pain #10 tabs 03/29/23 oxycodone 5 mg tablet 5 mg PO Q6H PRN pain #7 tabs 03/29/23 naloxone 4 mg/actuation nasal 4 mg intranasal Q2M #2 ea 03/31/23 spray (Narcan) oxycodone 5 mg tablet 5 - 10 mg (1 - 2 x 5 mg) PO Q6H 03/31/23 PRN pain #60 tabs polyethylene glycol 3350 17 17 g PO DAILY #510 grams 03/31/23 gram/dose oral powder (Miralax) Allergies Allergy/AdvReac Type Severity Reaction Status Date / Time No Known Drug Allergies Allergy Verified 03/29/23 14:21 Review of Systems Review of Systems Narrative: Pertinent positive and negative findings as per HPI Patient History Medical History Pleural effusion, left Hiatal hernia Hyperlipidemia Benign essential HTN Type 2 diabetes mellitus with hyperglycemia, without long-term current use of insulin Social History Smoking Status: Former smoker Smoking Status: Former smoker Substance Use Type: marijuana Exam Initial Vital Signs Initial Vital Signs: Vital Signs Temperature 98.4 F 03/31/23 19:47 Pulse Rate 100 H 03/31/23 19:47 Respiratory Rate 16 03/31/23 19:47 Blood Pressure 143/72 H 03/31/23 19:47 Pulse Oximetry 95 03/31/23 19:47 Oxygen Delivery Method Room Air 03/31/23 19:47 General: Healthy appearing, in pain but Able to give a complete and coherent history. Well-nourished well-developed HEENT: Moist mucous membranes, normal sclera with reactive pupils, Neck: No JVD, supple Respiratory: Lungs with diminished breath sounds on the left. No wheezing rhonchi or rales appreciated Cardiac: Regular rate and rhythm no murmurs no bruits Abdomen: Soft, nontender, good bowel tones, no flank pain Skin: Warm and dry, no rashes Neurologic: Grossly neurologically intact with no obvious asymmetries or abnormalities Extremities: No trauma, well perfused Psych: Cooperative, appropriate insight and affect Course Vital Signs Vital signs: Vital Signs - 8 hr 03/31/23 19:47 03/31/23 20:03 Temperature 98.4 F Pulse Rate 100 H 96 H Respiratory Rate 16 22 Blood Pressure 143/72 H 124/57 L Pulse Oximetry 95 93 Oxygen Delivery Method Room Air Medical Decision Making [facility] Narrative Medical decision making narrative: CC: Pleuritic chest pain Complicating co-morbidities: 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 so accessing care can be challenging Medical records reviewed: Primary care notes with initial findings concerning for pleural effusion reviewed. Chest Imaging studies from 03 22, , [id number] and are all reviewed. Radiology note with thoracentesis, a little over 1 L of pleural fluid removed reviewed. Pathology from thoracentesis is not yet a vailable. G stain showed no organisms or white cells with pleural effusion. Differential considered: Pneumonia, atelectasis, empyema, congestive heart failure, liver failure, renal failure, reaccumulated pleural fluid, Exam documented above, pertinent findings include: Patient is in pain, diminished breath sounds on the left side remainder of exam is benign Lab Test results independently reviewed as above. Pertinent findings: CBC is unremarkable Chemistries are benign, no renal failure and normal liver studies Imaging studies independently reviewed: Chest x-ray from today shows reaccumulating left pleural fluid with no pneumothorax appreciated Treatments: Patient was given Toradol, 1 mg of Dilaudid with pain finally controlled adequately that he was able to use an incentive spirometer and take a fully expanded breath Discussion: 73-year-old gentleman with what likely is malignant pleural effusion reaccumulating and significant left pleuritic chest pain after thoracentesis. No evidence of pneumothorax. No evidence of pneumonia. I believe that the low-grade temperature that he was experiences likely secondary to atelectasis and we reviewed the importance of deep breathing. Pain has been in inadequately controlled, he has had significant constipation. We had a long discussion regarding pain control, use of MiraLax and follow-up. Initial body fluid studies from the do not suggest empyema. I have confirmed that fluid was sent for cytology. Please see detailed instructions below on my suggestions for pain control. Patient will follow up with his primary care doctor to review pathology. Reviewed reasons to return to the emergency department including increasing dyspnea, fevers, confusion or uncontrolled pain. We did discuss hospitalization however I do not think that there is significant benefit that at this time and with shared decision-making we formulated discharge plans. Discharge Plan Departure Patient Disposition: Home Clinical Impression: Pleural effusion, Chest pain, pleuritic Activity Restrictions/Additional Instructions: Thank you for coming in today. I am sorry that you have not been able to get this pleuritic chest pain under control Workup today is reassuring. I do not see evidence of infection or sepsis. Unfortunately, it does look like the pleural fluid that was removed is reaccumulating. You do not have a pneumothorax. For constipation I have given you a dose of Dulcolax this evening. You do need to continue using MiraLax. The correct dose of MiraLax is however many capsules daily are required free to have soft regular stools. You can not overdose on MiraLax. For pain I am going to recommended tiered plan: For the 1st level, please do continue using meloxicam twice a day. This helps with overall inflammation For the 2nd level I am going to recommend 5-10 mg of oxycodone every 6 hours as needed for pain. For the 3rd level, I am going to recommend 2 extra-strength Tylenol at least 2 times day. The Tylenol can augment the meloxicam and oxycodone so that they are more effective Reasons to return to the emergency department include fevers, increasing shortness of breath, confusion or pain that is inadequately controlled You will need to follow-up with your primary care doctor to review pathology results from the thoracentesis Prescriptions: New oxycodone 5 mg tablet 5 - 10 mg PO Q6H PRN (Reason: pain) Qty: 60 0RF naloxone [Narcan] 4 mg/actuation spray,non-aerosol 4 mg intranasal Q2M Qty: 2 0RF Rx Instructions: spray 1 dose into ONE nostril; alternate nostrils w each dose until help arrives polyethylene glycol 3350 [Miralax] 17 gram/dose powder 17 g PO DAILY Qty: 510 1RF No Action cyclobenzaprine 5 mg tablet 5 mg PO BEDTIME atorvastatin 10 mg tablet 10 mg PO DAILY Qty: 90 3RF lisinopril 20 mg tablet 20 mg PO DAILY Qty: 90 3RF metformin 500 mg tablet extended release 24hr 2,000 mg PO DAILY Qty: 360 3RF tramadol 50 mg tablet 50 mg PO Q6H PRN (Reason: pain) Qty: 10 0RF meloxicam 7.5 mg tablet 7.5 mg PO BID PRN (Reason: pain) Qty: 10 0RF oxycodone 5 mg tablet 5 mg PO Q6H PRN (Reason: pain) Qty: 7 0RF Referrals: Ej Espinoza DO [Primary Care Provider] - Stand Alone Forms: Patient Portal/API
--- NOTE | 2023-03-31 20:44 | DI.RAD.S_ITS ---
PROCEDURE: XR CHEST 2V INDICATIONS: post thoracentesis pain TECHNIQUE: 2 views of the chest were acquired. COMPARISON: [facility], , XR CHEST 1V, 03/29/2023, 14:18. FINDINGS: Surgical changes and devices: None. Lungs and pleura: Compared to prior radiograph 03/29/2023, increased size of left pleural effusion with subjacent atelectasis. Right basilar streaky opacities are favored to represent atelectasis. No pneumothorax. Mediastinum: Mediastinal contours are normal. Heart size is normal. Bones and chest wall: No suspicious bony abnormalities. Soft tissues appear unremarkable. IMPRESSION: Compared to prior radiograph 03/29/2023, increased size of left pleural effusion, now large, with subjacent atelectasis. Increased right streaky basilar opacities are favored to represent atelectasis. Dictated by: Aylin Regalado M.D. on 03/31/2023 at 21:23 Approved by: Aylin Regalado M.D. on 03/31/2023 at 21:25
[2023-03-31] MEDS: KETOROLAC 30 MG/ML VIAL 15 MG IV (20:49)
[2023-03-31] MEDS: HYDROMORPHONE 1 MG INJ IV (20:50)
[2023-03-31 21:00] LABS: Add Manual Diff / Slide Review NO; Basophils Absolute Auto 100 /uL (0-100); Basophils Percent Auto 0.9 % (0-2); Eosinophils Absolute Auto 200 /uL (0-450); Eosinophils Percent Auto 2.1 % (2-4); Hematocrit 39.6 % (41-53); Hemoglobin 13.6 g/dL (13.5-17.5); Lymphocytes Absolute Auto 1300 /uL (1100-4500); Lymphocytes Percent Auto 12.5 % (25-40); Mean Corpuscular HGB Conc 34.2 % (30-36); Mean Corpuscular Hemoglobin 28.5 PG (26-34); Mean Corpuscular Volume 83.3 fL (80-100); Monocytes Absolute Auto 900 /uL (0-900); Neutrophils Absolute Auto 7800 /uL (1500-7000); Neutrophils Percent Auto 75.5 % (50-75); Platelet Count 313 X10^3/uL (150-400); Red Blood Cell Count 4.76 X10^6/uL (4.5-5.9); Red Cell Distribution Width 13.6 % (11.6-14.8); White Blood Cell Count 10.3 X10^3/uL (4.5-11.0)
[2023-03-31 21:10] LABS: Alanine Aminotransferase 16 IU/L (<50); Albumin 4.1 g/dL (3.5-5.0); Albumin Globulin Ratio 1.2 (1.0-2.8); Alkaline Phosphatase 69 U/L (38-126); Aspartate Aminotransferase 20 IU/L (17-59); Bilirubin Total 0.7 mg/dL (0.2-1.3); Blood Urea Nitrogen 20 mg/dL (9-20); Carbon Dioxide 25 mmol/L (22-32); Chloride 96 mmol/L (98-107); Estimated Glomerular Filt Rate > 60 mL/min (>60); Globulin 3.3 g/dL (1.7-4.1); Glucose 169 mg/dL (80-110); HEMOLYSIS < 15 (0-50); Potassium 4.8 mmol/L (3.4-5.1); Sodium 132 mmol/L (137-145); Total Protein 7.4 g/dL (6.3-8.2)
[2023-03-31] MEDS: OXYCODONE/APAP 5/325 PREPACK 1 BOTTLE MISC ×2 (22:55)
[2023-03-31] MEDS: OXYCODONE/ACETAMINOPHEN 5/325 TABLET 2 TAB PO (22:58)
[2023-03-31] MEDS: BISACODYL 5 MG TABLET 10 MG PO (23:02)
== END 2023-03-31 23:27 | disposition home or self-care (01) ==
PROVIDERS: Emergency Provider Emergency Medicine; PCP Family Medicine
DX: J90 Pleural effusion, not elsewhere classified (principal); R07.9 Chest pain, unspecified
CPT/HCPCS: 36415; 71046; 80053; 85025; 96374; 96375; 99284; J1170; J1885

== ENCOUNTER 2023-04-01 05:42 | Emergency (ER) | payer MEDICARE, SELFPAY ==
[2023-04-01] VITALS (27 sets, daily range): BP systolic 113–176; BP diastolic 56–84; PULSE 93–115; RESP 11–26; TEMP 37–37.2; O2SAT 88–97; BMI 25.8
--- NOTE | 2023-04-01 05:46 | ED.GENADULT ---
HPI - General Adult <Jana Deshpande MD - Last Filed: 04/07/23 01:40> General Chief complaint: Shortness of Breath/Dyspnea Stated complaint: shakes, wheezing, chest pain was seen yesterday Time Seen by Provider: 04/01/23 05:46 History of Present Illness HPI narrative: 73-year-old man seen last night with left-sided chest pain after thoracentesis on March 29 with newly diagnosed pleural effusion. High concern for neoplastic process as the underlying source for the pleural effusion. Chest x-ray last night showed that the effusion was reaccumulating. He was afebrile and labs were reassuring. Is discharged home with a plan for adequate pain control, incentive spirometry and appropriate follow-up. Over the ensuing 8 hours he has become progressively worse. He awoke this morning at approximately 5:00 a.m., took 2 Percocet and noticed that he was chilled with rigors, now wheezing and feeling weaker and worse. Pain is still present not as severe as it was with initial presentation last night. On arrival tachycardic, has lower oxygen levels and is audibly wheezing all of which is a significant change in the last 8 hours. He is pale and appears sick, again a change in the last 8 hours. He comes in for further evaluation as instructed with discharge last night Related Data Home Medications Medication Instructions Recorded Confirmed cyclobenzaprine 5 mg tablet 5 mg PO BEDTIME 03/19/23 04/01/23 atorvastatin 10 mg tablet 10 mg PO QAM cholesterol 04/01/23 04/01/23 lisinopril 20 mg tablet 20 mg PO QAM blood pressure 04/01/23 04/01/23 metformin 500 mg tablet,extended 1,000 mg PO BID 04/01/23 04/01/23 release 24hr polyethylene glycol 3350 17 17 g PO QAM 04/01/23 04/01/23 gram/dose oral powder (Miralax) Previous Rx's Medication Instructions Recorded tramadol 50 mg tablet 50 mg PO Q6H PRN pain #10 tabs 03/28/23 meloxicam 7.5 mg tablet 7.5 mg PO BID PRN pain #10 tabs 03/29/23 naloxone 4 mg/actuation nasal 4 mg intranasal Q2M #2 ea 03/31/23 spray (Narcan) oxycodone 5 mg tablet 5 - 10 mg (1 - 2 x 5 mg) PO Q6H 03/31/23 PRN pain #60 tabs Allergies Allergy/AdvReac Type Severity Reaction Status Date / Time No Known Drug Allergies Allergy Verified 03/29/23 14:21 Review of Systems <Jana Deshpande MD - Last Filed: 04/07/23 01:40> Review of Systems Narrative: Pertinent positive and negative findings as per HPI Patient History <Jana Deshpande MD - Last Filed: 04/07/23 01:40> Medical History Pleural effusion, left Hiatal hernia Hyperlipidemia Benign essential HTN Type 2 diabetes mellitus with hyperglycemia, without long-term current use of insulin Social History Smoking Status: Former smoker Smoking Status: Former smoker Substance Use Type: marijuana Exam <Jana Deshpande MD - Last Filed: 04/07/23 01:40> Narrative Exam Narrative: General: Pale, rigors, in pain but still Able to give a complete and coherent history. Well-nourished well-developed HEENT: Moist mucous membranes, normal sclera with reactive pupils, Neck: No JVD, supple Respiratory: Lungs with wheezing in all lung tariq and diminished breath sounds in the left base. The wheezing as a significant change Cardiac: Mild tachycardia with no murmurs. The tachycardia is a change Abdomen: Soft, nontender, good bowel tones, no flank pain Skin: Pale, he is not diaphoretic. His color is a change Neurologic: Grossly neurologically intact with no obvious asymmetries or abnormalities Extremities: No trauma, well perfused Psych: Cooperative, appropriate insight and affect Initial Vital Signs Initial Vital Signs: Vital Signs Pulse Rate 115 H 04/01/23 05:48 Blood Pressure 176/84 H 04/01/23 05:48 Pulse Oximetry 92 04/01/23 05:48 <Milagros Perales DO - Last Filed: 04/01/23 15:11> Initial Vital Signs Initial Vital Signs: Vital Signs Pulse Rate 115 H 04/01/23 05:48 Blood Pressure 176/84 H 04/01/23 05:48 Pulse Oximetry 92 04/01/23 05:48 Procedures <Jana Deshpande MD - Last Filed: 04/07/23 01:40> [facility] Procedure Name of Procedure: Thoracentesis Side (if applicable): left Time out performed: Yes Technique/Description of procedure performed: Ultrasound guidance was used to clearly identify large pocket of pleural fluid. Using sterile technique over needle catheter was introduced into the pleural fluid with approximately 1500 cc of dark blood-tinged fluid removed. Samples were sent for culture, Gram stain, cell count, protein, LD Patient tolerated procedure: Well Complications: none Additional Comments: Postprocedure chest x-ray shows better aerated left lung, decreased volume of pleural fluid, no pneumothorax Course <Jana Deshpande MD - Last Filed: 04/07/23 01:40> Orders Ordered: Discontinued Medications Atorvastatin Calcium (Atorvastatin 20 Mg Tablet) 10 mg PO NOW ONE Stop: 04/01/23 08:53 Last Admin: 04/01/23 09:16 Dose: 10 mg Documented By: STEPHANY Hydromorphone HCl (Hydromorphone 0.5 Mg Inj) 0.5 mg IV Q15MIN PRN PRN Reason: Pain, Last Admin: 04/01/23 06:29 Dose: 0.5 mg Documented By: JEAN Piperacillin Sod/Tazobactam (Sod 4.5 gm/ Sodium Chloride) 100 mls @ 200 mls/hr IV NOW ONE Stop: 04/01/23 06:40 Last Infusion: 04/01/23 07:35 Dose: Infused Documented By: Admin: 04/01/23 06:48 Dose: 200 mls/hr Documented By: JEAN Sodium Chloride (Normal Saline 0.9%) 1,000 mls @ 100 mls/hr IV BOLUS ONE Stop: 04/01/23 16:41 Last Infusion: 04/01/23 13:45 Dose: 100 mls/hr Documented By: Admin: 04/01/23 06:48 Dose: 100 mls/hr Documented By: JEAN Piperacillin Sod/Tazobactam (Sod 3.375 gm/ Sodium Chloride) 100 mls @ 25 mls/hr IV Q8H MANUEL Last Infusion: 04/01/23 13:45 Dose: 25 mls/hr Documented By: Admin: 04/01/23 12:38 Dose: 25 mls/hr Documented By: SAMIRA Lisinopril (Lisinopril 10 Mg Tablet) 10 mg PO NOW ONE Stop: 04/01/23 08:53 Last Admin: 04/01/23 09:14 Dose: 10 mg Documented By: STEPHANY Metformin HCl (Metformin Hcl 500 Mg Tablet) 1,000 mg PO 0800 [facility] Last Admin: 04/01/23 09:34 Dose: Not Given Documented By: STEPHANY Metformin HCl (Metformin Hcl 500 Mg Tablet) 1,000 mg PO 0800 [facility], [facility] Last Admin: 04/01/23 09:14 Dose: 1,000 mg Documented By: STEPHANY Ondansetron HCl (Ondansetron 4 Mg/2 Ml Inj) 4 mg IV NOW ONE Stop: 04/01/23 06:31 Last Admin: 04/01/23 06:12 Dose: 4 mg Documented By: JEAN Oxycodone HCl (Oxycodone Ir 5 Mg Tablet) 10 mg PO Q6HR PRN PRN Reason: Pain, Severe (7-10) Stop: 04/02/23 08:51 Last Admin: 04/01/23 09:14 Dose: 10 mg Documented By: STEPHANY Polyethylene Glycol (Polyethylene Glycol 3350 17 Gm Powd.Pack) 17 gm PO NOW ONE Stop: 04/01/23 08:53 Last Admin: 04/01/23 09:13 Dose: 17 gm Documented By: STEPHANY Vital Signs Vital signs: Vital Signs - 8 hr 04/01/23 07:30 04/01/23 07:30 04/01/23 08:00 Temperature Pulse Rate 94 H 94 H Respiratory Rate 12 13 Blood Pressure 127/60 Pulse Oximetry 96 88 L Oxygen Delivery Method Room Air Room Air Oxygen Flow Rate 04/01/23 08:00 04/01/23 08:08 04/01/23 08:30 Temperature Pulse Rate 97 H Respiratory Rate 19 Blood Pressure 127/59 L Pulse Oximetry 95 95 Oxygen Delivery Method Nasal Cannula Oxygen Flow Rate 2 04/01/23 08:30 04/01/23 09:12 04/01/23 09:13 Temperature Pulse Rate 108 H Respiratory Rate Blood Pressure 124/63 136/63 Pulse Oximetry 91 Oxygen Delivery Method Oxygen Flow Rate 04/01/23 09:30 04/01/23 09:30 04/01/23 10:00 Temperature Pulse Rate 96 H 99 H Respiratory Rate 19 19 Blood Pressure 121/81 Pulse Oximetry 94 96 Oxygen Delivery Method Oxygen Flow Rate 04/01/23 10:00 04/01/23 10:30 04/01/23 11:00 Temperature Pulse Rate 96 H 96 H Respiratory Rate 21 15 Blood Pressure 127/58 L Pulse Oximetry 96 96 Oxygen Delivery Method Oxygen Flow Rate 04/01/23 11:30 04/01/23 11:58 04/01/23 11:58 Temperature 99.0 F Pulse Rate 93 H 99 H Respiratory Rate 12 19 Blood Pressure Pulse Oximetry 96 96 Oxygen Delivery Method Oxygen Flow Rate 04/01/23 11:58 04/01/23 12:00 04/01/23 12:00 Temperature Pulse Rate 101 H Respiratory Rate 19 Blood Pressure 122/69 124/60 Pulse Oximetry 96 Oxygen Delivery Method Oxygen Flow Rate 04/01/23 12:31 04/01/23 12:33 04/01/23 12:33 Temperature Pulse Rate 106 H 101 H Respiratory Rate 22 21 Blood Pressure 124/58 L Pulse Oximetry 94 Oxygen Delivery Method Oxygen Flow Rate 04/01/23 13:00 04/01/23 13:00 04/01/23 13:30 Temperature Pulse Rate 107 H Respiratory Rate 21 Blood Pressure 134/61 113/56 L Pulse Oximetry 96 Oxygen Delivery Method Oxygen Flow Rate 04/01/23 13:30 Temperature Pulse Rate 103 H Respiratory Rate 19 Blood Pressure Pulse Oximetry 95 Oxygen Delivery Method Oxygen Flow Rate <Milagros Perales DO - Last Filed: 04/01/23 15:11> Orders Ordered: Discontinued Medications Atorvastatin Calcium (Atorvastatin 20 Mg Tablet) 10 mg PO NOW ONE Stop: 04/01/23 08:53 Last Admin: 04/01/23 09:16 Dose: 10 mg Documented By: STEPHANY Hydromorphone HCl (Hydromorphone 0.5 Mg Inj) 0.5 mg IV Q15MIN PRN PRN Reason: Pain, Last Admin: 04/01/23 06:29 Dose: 0.5 mg Documented By: JEAN Piperacillin Sod/Tazobactam (Sod 4.5 gm/ Sodium Chloride) 100 mls @ 200 mls/hr IV NOW ONE Stop: 04/01/23 06:40 Last Infusion: 04/01/23 07:35 Dose: Infused Documented By: Admin: 04/01/23 06:48 Dose: 200 mls/hr Documented By: JEAN Sodium Chloride (Normal Saline 0.9%) 1,000 mls @ 100 mls/hr IV BOLUS ONE Stop: 04/01/23 16:41 Last Infusion: 04/01/23 13:45 Dose: 100 mls/hr Documented By: Admin: 04/01/23 06:48 Dose: 100 mls/hr Documented By: JEAN Piperacillin Sod/Tazobactam (Sod 3.375 gm/ Sodium Chloride) 100 mls @ 25 mls/hr IV Q8H [facility] Last Infusion: 04/01/23 13:45 Dose: 25 mls/hr Documented By: Admin: 04/01/23 12:38 Dose: 25 mls/hr Documented By: SAMIRA Lisinopril (Lisinopril 10 Mg Tablet) 10 mg PO NOW ONE Stop: 04/01/23 08:53 Last Admin: 04/01/23 09:14 Dose: 10 mg Documented By: STEPHANY Metformin HCl (Metformin Hcl 500 Mg Tablet) 1,000 mg PO 0800 [facility], [facility] Last Admin: 04/01/23 09:34 Dose: Not Given Documented By: STEPHANY Metformin HCl (Metformin Hcl 500 Mg Tablet) 1,000 mg PO 0800 [facility] Last Admin: 04/01/23 09:14 Dose: 1,000 mg Documented By: STEPHANY Ondansetron HCl (Ondansetron 4 Mg/2 Ml Inj) 4 mg IV NOW ONE Stop: 04/01/23 06:31 Last Admin: 04/01/23 06:12 Dose: 4 mg Documented By: JEAN Oxycodone HCl (Oxycodone Ir 5 Mg Tablet) 10 mg PO Q6HR PRN PRN Reason: Pain, Severe (7-10) Stop: 04/02/23 08:51 Last Admin: 04/01/23 09:14 Dose: 10 mg Documented By: STEPHANY Polyethylene Glycol (Polyethylene Glycol 3350 17 Gm Powd.Pack) 17 gm PO NOW ONE Stop: 04/01/23 08:53 Last Admin: 04/01/23 09:13 Dose: 17 gm Documented By: STEPHANY Vital Signs Vital signs: Vital Signs - 8 hr 04/01/23 07:30 04/01/23 07:30 04/01/23 08:00 Temperature Pulse Rate 94 H 94 H Respiratory Rate 12 13 Blood Pressure 127/60 Pulse Oximetry 96 88 L Oxygen Delivery Method Room Air Room Air Oxygen Flow Rate 04/01/23 08:00 04/01/23 08:08 04/01/23 08:30 Temperature Pulse Rate 97 H Respiratory Rate 19 Blood Pressure 127/59 L Pulse Oximetry 95 95 Oxygen Delivery Method Nasal Cannula Oxygen Flow Rate 2 04/01/23 08:30 04/01/23 09:12 04/01/23 09:13 Temperature Pulse Rate 108 H Respiratory Rate Blood Pressure 124/63 136/63 Pulse Oximetry 91 Oxygen Delivery Method Oxygen Flow Rate 04/01/23 09:30 04/01/23 09:30 04/01/23 10:00 Temperature Pulse Rate 96 H 99 H Respiratory Rate 19 19 Blood Pressure 121/81 Pulse Oximetry 94 96 Oxygen Delivery Method Oxygen Flow Rate 04/01/23 10:00 04/01/23 10:30 04/01/23 11:00 Temperature Pulse Rate 96 H 96 H Respiratory Rate 21 15 Blood Pressure 127/58 L Pulse Oximetry 96 96 Oxygen Delivery Method Oxygen Flow Rate 04/01/23 11:30 04/01/23 11:58 04/01/23 11:58 Temperature 99.0 F Pulse Rate 93 H 99 H Respiratory Rate 12 19 Blood Pressure Pulse Oximetry 96 96 Oxygen Delivery Method Oxygen Flow Rate 04/01/23 11:58 04/01/23 12:00 04/01/23 12:00 Temperature Pulse Rate 101 H Respiratory Rate 19 Blood Pressure 122/69 124/60 Pulse Oximetry 96 Oxygen Delivery Method Oxygen Flow Rate 04/01/23 12:31 04/01/23 12:33 04/01/23 12:33 Temperature Pulse Rate 106 H 101 H Respiratory Rate 22 21 Blood Pressure 124/58 L Pulse Oximetry 94 Oxygen Delivery Method Oxygen Flow Rate 04/01/23 13:00 04/01/23 13:00 04/01/23 13:30 Temperature Pulse Rate 107 H Respiratory Rate 21 Blood Pressure 134/61 113/56 L Pulse Oximetry 96 Oxygen Delivery Method Oxygen Flow Rate 04/01/23 13:30 Temperature Pulse Rate 103 H Respiratory Rate 19 Blood Pressure Pulse Oximetry 95 Oxygen Delivery Method Oxygen Flow Rate Medical Decision Making <Jana Deshpande MD - Last Filed: 04/07/23 01:40> Lab Data 04/01/23 06:03 04/01/23 06:03 Labs: Lab Results 04/01/23 04/01/23 04/01/23 Range/Units 06:03 06:18 07:27 WBC 8.6 (4.5-11.0) X10^3/uL RBC 4.90 (4.5-5.9) X10^6/uL Hgb 13.8 (13.5-17.5) g/dL Hct 40.6 L (41-53) % MCV 82.8 (80-100) fL MCH 28.2 (26-34) PG MCHC 34.1 (30-36) % RDW 13.6 (11.6-14.8) % Plt Count 299 (150-400) X10^3/uL Neut % (Auto) 74.0 (50-75) % Lymph % (Auto) 14.6 L (25-40) % [place] % (Auto) 7.9 (3-14) % Eos % (Auto) 2.9 (2-4) % Baso % (Auto) 0.6 (0-2) % Neut # (Auto) 6400 (9886-7690) /uL Lymph # (Auto) 1300 (4215-8535) /uL [place] # (Auto) 700 (0-900) /uL Eos # (Auto) 300 (0-450) /uL Baso # (Auto) 100 (0-100) /uL Sodium 131 L (137-145) mmol/L Potassium 4.5 (3.4-5.1) mmol/L Chloride 97 L (98-107) mmol/L Carbon Dioxide 25 (22-32) mmol/L BUN 23 H (9-20) mg/dL Creatinine 1.12 (0.66-1.25) mg/dL Estimated GFR > 60 (>60) mL/min BUN/Creatinine Ratio 20.5 (6-22) Glucose 178 H (80-110) mg/dL Lactate 1.8 (0.7-2.1) mmol/L Calcium 9.0 (8.4-10.2) mg/dL Total Bilirubin 0.9 (0.2-1.3) mg/dL AST 19 (17-59) IU/L ALT 16 (<50) IU/L Alkaline Phosphatase 72 (38-126) U/L Troponin I < 0.012 (0.01-0.034) ng/mL NT-Pro-B Natriuret Pep 36 (<125) pg/mL Total Protein 7.4 (6.3-8.2) g/dL Albumin 4.1 (3.5-5.0) g/dL Globulin 3.3 (1.7-4.1) g/dL Albumin/Globulin Ratio 1.2 (1.0-2.8) Procalcitonin 0.20 (<0.5) ng/mL Fluid Color Yellow Fluid Appearance Slightly cloudy Fluid RBC 8768 /uL Fld Tot Nucleated Cell 1280 /uL Fluid Polynuclear WBCs 72 % Fluid Mononuclear WBCs 5 % Fluid Eosinophils 2 % Fluid Other Cells 21 % Body Fluid Clot No clots present Fluid Total Protein 4.6 (.) g/dL Fluid LDH 3029 (.) IU/L Chlamy pneumoniae PCR Not detected (Not Detect) Adenovirus (PCR) Not detected (Not Detect) B.parapertussis DNA PCR Not detected (Not Detecte) Coronavirus OC43 (PCR) Not detected (Not Detect) Coronavirus HKU1 (PCR) Not detected (Not Detect) Coronavirus 229E (PCR) Not detected (Not Detect) SARS-CoV-2 (PCR) Not detected (Not Detecte) Coronavirus NL63 (PCR) Not detected (Not Detect) Human Metapneumovir PCR Not detected (Not Detect) Influenza Type A (PCR) Not detected (Not Detect) Influenza Type B (PCR) Not detected (Not Detect) M. pneumoniae (PCR) Not detected (Not Detect) Parainfluenza 1 (PCR) Not detected (Not Detect) Parainfluenza 2 (PCR) Not detected (Not Detect) Parainfluenza 3 (PCR) Not detected (Not Detect) Parainfluenza 4 (PCR) Not detected (Not Detect) RSV (PCR) Not detected (Not Detect) Entero/Rhino (PCR) Not detected (Not Detect) MDM Narrative Medical decision making narrative: CC: Wheezing, increasing pain, dyspnea, tachycardia Complicating co-morbidities: Known left pleural effusion, increasing pain. Evaluated last night with increased accumulation of fluid after thoracentesis on 03/29. Still awaiting pathology Data collected from: patient Medical records reviewed: Please see my note from from 8 hours ago, March 31, 8:00 p.m. Differential considered: Sepsis, empyema, pneumonia, recurrent pleural effusion concern for malignancy, acute coronary syndrome, congestive heart failure Exam documented above, pertinent findings include: Patient appears worse than when discharged approximately 8 hours ago. Pain has been adequately controlled he is currently having rigors, he is pale and he now has wheezing in all ventilated lung tariq which is a significant change Lab Test results independently reviewed as above. Pertinent findings: CBC shows no significant change in white count Chemistries are unchanged, no significant abnormalities and normal renal function Troponin is undetected BNP is low Procalcitonin is not elevated Independently reviewed EKG: Imaging studies independently reviewed: Chest x-ray on arrival this morning shows similar pleural effusion with concern for developing right upper lobe pneumonia. Postprocedure chest x-ray Consultations: Treatments: Thoracentesis for diagnostic and therapeutic purposes. Please see procedure note. Uncomplicated with dark fluid blood-tinged color total of approximately 1500cc removed. Please see procedure note Blood cultures have been obtained, pleural fluid obtained, Zosyn started. Patient is slightly nauseated prior to thoracentesis and Zofran is administered. 0.5 mg is administered near the end of the thoracentesis for pain control Re-evaluations: Patient is increasingly tachypneic and tachycardic as well as hypoxic when compared to visit 8 hours ago. Responds nicely to oxygen per nasal cannula. Discussion: 73-year-old gentleman with recently diagnosed left pleural effusion. CT scan of the chest did not show obvious malignancy. Almost 1100 cc were drained on March 29. He presents last night complaining of increasing pain which was seemingly adequately controlled with narcotics, he was instructed in use of incentive spirometer, no evidence of empyema or sepsis at that time. He returns this morning, approximately 8 hours later looking significantly worse. Chest x-ray prior to thoracentesis today suggests developing right upper lobe pneumonia which is consistent with a increasing wheezing and rhonchi appreciated on exam today. Thoracentesis with 1500 cc removed with sample sent for culture, Gram stain, cell count, LD, total protein. Initial sample from 03/29 was already sent for pathology so cytology was not ordered however additional fluid is available in the lab should that be requested. Care will be turned over to Dr. Olson at change of shift. Anticipate hospital admission. Additional Information: Severe Sepsis Criteria [ x] bacterial source of infection suspected and documented [ ] 2 SIRS Criteria met [ x ] HR >90 [ x] RR >20 [ ] fever or hypothermia [ ] leukocytosis/leukopenia/bandemia [ ] Evidence of at least 1 organ system dysfunction [ ] Lactate > 2 [ ] BP < 90 or MAP <65, >40mm decrease from normal baseline [ ] Creat > 2.0 [ ] T. Bili > 2.0 [ ] platelet count < 100k [ ] altered mental status [ ] mechanical ventilation [ ] provider documentation of severe sepsis Severe Sepsis Determination. the patient has been screened and [ ] DOES meet criteria for severe sepsis [x ] DOES NOT meet criteria for severe sepsis Goal directed treatment Within 3 hours [ x] blood cx drawn prior to abx [ x ] broad spectrum abx started [ x ] lactic acid level checked [ ] lactic redrawn within 6 hours if >2.0 Septic Shock Criteria [ ] lactic > 4 at any time [ ] SBP ,90 or MAP , 65 [ ] documentation of septic shock Time Septic Shock diagnosed: [ ] Septic Shock Determination. the patient has been screened and [ ] DOES meet criteria for septic shock [ ] DOES NOT meet criteria for septic shock Goal directed therapy within 3 hours of septic shock or initial hypotension [ ] 30ml/kg fluid [ ] ABW used [ ] IBW (33.6) used due to BMI > 30 [ ] patient or advocate declining fluid administration after shared decision making conversation Clinical reason for NOT initiating fluid bolus: Within 6 hours (if continued hypotension after fluids or initial lactate >4) [ ] repeat volume status and tissue perfusion assessment documented after fluid bolus was completed at [Date/Time] Must include vital signs, cardiopulmonary exam, capillary refill, peripheral pulse evaluation, skin exam [ ] Initiate vasopressor therapy if persistent hypotension after adequate fluid bolus <Milagros Perales, DO - Last Filed: 04/01/23 15:11> Lab Data Labs: Lab Results 04/01/23 04/01/23 04/01/23 Range/Units 06:03 06:18 07:27 WBC 8.6 (4.5-11.0) X10^3/uL RBC 4.90 (4.5-5.9) X10^6/uL Hgb 13.8 (13.5-17.5) g/dL Hct 40.6 L (41-53) % MCV 82.8 (80-100) fL MCH 28.2 (26-34) PG MCHC 34.1 (30-36) % RDW 13.6 (11.6-14.8) % Plt Count 299 (150-400) X10^3/uL Neut % (Auto) 74.0 (50-75) % Lymph % (Auto) 14.6 L (25-40) % [place] % (Auto) 7.9 (3-14) % Eos % (Auto) 2.9 (2-4) % Baso % (Auto) 0.6 (0-2) % Neut # (Auto) 6400 (1876-7900) /uL Lymph # (Auto) 1300 (5797-6798) /uL [place] # (Auto) 700 (0-900) /uL Eos # (Auto) 300 (0-450) /uL Baso # (Auto) 100 (0-100) /uL Sodium 131 L (137-145) mmol/L Potassium 4.5 (3.4-5.1) mmol/L Chloride 97 L (98-107) mmol/L Carbon Dioxide 25 (22-32) mmol/L BUN 23 H (9-20) mg/dL Creatinine 1.12 (0.66-1.25) mg/dL Estimated GFR > 60 (>60) mL/min BUN/Creatinine Ratio 20.5 (6-22) Glucose 178 H (80-110) mg/dL Lactate 1.8 (0.7-2.1) mmol/L Calcium 9.0 (8.4-10.2) mg/dL Total Bilirubin 0.9 (0.2-1.3) mg/dL AST 19 (17-59) IU/L ALT 16 (<50) IU/L Alkaline Phosphatase 72 (38-126) U/L Troponin I < 0.012 (0.01-0.034) ng/mL NT-Pro-B Natriuret Pep 36 (<125) pg/mL Total Protein 7.4 (6.3-8.2) g/dL Albumin 4.1 (3.5-5.0) g/dL Globulin 3.3 (1.7-4.1) g/dL Albumin/Globulin Ratio 1.2 (1.0-2.8) Procalcitonin 0.20 (<0.5) ng/mL Fluid Color Yellow Fluid Appearance Slightly cloudy Fluid RBC 8768 /uL Fld Tot Nucleated Cell 1280 /uL Fluid Polynuclear WBCs 72 % Fluid Mononuclear WBCs 5 % Fluid Eosinophils 2 % Fluid Other Cells 21 % Body Fluid Clot No clots present Fluid Total Protein 4.6 (.) g/dL Fluid LDH 3029 (.) IU/L Chlamy pneumoniae PCR Not detected (Not Detect) Adenovirus (PCR) Not detected (Not Detect) B.parapertussis DNA PCR Not detected (Not Detecte) Coronavirus OC43 (PCR) Not detected (Not Detect) Coronavirus HKU1 (PCR) Not detected (Not Detect) Coronavirus 229E (PCR) Not detected (Not Detect) SARS-CoV-2 (PCR) Not detected (Not Detecte) Coronavirus NL63 (PCR) Not detected (Not Detect) Human Metapneumovir PCR Not detected (Not Detect) Influenza Type A (PCR) Not detected (Not Detect) Influenza Type B (PCR) Not detected (Not Detect) M. pneumoniae (PCR) Not detected (Not Detect) Parainfluenza 1 (PCR) Not detected (Not Detect) Parainfluenza 2 (PCR) Not detected (Not Detect) Parainfluenza 3 (PCR) Not detected (Not Detect) Parainfluenza 4 (PCR) Not detected (Not Detect) RSV (PCR) Not detected (Not Detect) Entero/Rhino (PCR) Not detected (Not Detect) Imaging Data Chest x-ray: Radiologist's Impression: PROCEDURE: XR CHEST 1V INDICATIONS: New wheezing, reaccumulating pleural effusion TECHNIQUE: One view of the chest was acquired. COMPARISON: [facility], CR, XR CHEST 1V, 04/01/2023, 6:25. [facility], CT, CT CHEST W CON, 03/29/2023, 15:59. [facility], CR, XR CHEST 1V, 03/29/2023, 14:18. [facility], CR, XR CHEST 2V, 03/31/2023, 20:52. FINDINGS: Surgical changes and devices: None. Lungs and pleura: There is a moderately sized left-sided pleural effusion. Low lung volumes are noted. This causes a crowded appearance to the lung markings and limits evaluation. Within the right mid lung, there is worsening infiltrate. Mediastinum: Mediastinal contours appear normal. Heart size is normal. Bones and chest wall: No suspicious bony lesions. Overlying soft tissues appear unremarkable. IMPRESSION: Left-sided pleural effusion, similar to the prior. Worsening right midlung infiltrate. Note: No significant discrepancy from the preliminary report. Dictated by: Bebo Valdivia M.D. on 04/01/2023 at 6:22 CXR #2: Radiologist's Impression: PROCEDURE: XR CHEST 1V INDICATIONS: post thoracentesis TECHNIQUE: One view of the chest was acquired. COMPARISON: [facility], CR, XR CHEST 2V, 03/31/2023, 20:52. [facility], CR, XR CHEST 1V, 04/01/2023, 5:53. FINDINGS: Surgical changes and devices: None. Lungs and pleura: No pneumothorax is seen. The previously seen left-sided pleural effusion is largely resolved, with trace pleural fluid remaining. Poorly defined right midlung infiltrate can be seen. Streaky atelectasis can be seen at the left lung base. Mediastinum: Mediastinal contours appear normal. Heart size is normal. Bones and chest wall: No suspicious bony lesions. Age-appropriate bony degenerative changes are seen. Overlying soft tissues appear unremarkable. IMPRESSION: No post thoracentesis pneumothorax. Nearly resolved left-sided pleural effusion, with left lung base atelectasis. Right midlung infiltrate, which appears worse than on the prior examination, which may be related to a component of atelectasis. Dictated by: Bebo Valdivia M.D. on 04/01/2023 at 6:20 ECG Data Interpretation: Sinus rhythm rate 99 AR interval 180 QRS [address] changes noted MDM Narrative Medical decision making narrative: CC: Wheezing, increasing pain, dyspnea, tachycardia Complicating co-morbidities: Known left pleural effusion, increasing pain. Evaluated last night with increased accumulation of fluid after thoracentesis on 03/29. Still awaiting pathology Data collected from: patient Medical records reviewed: Please see my note from from 8 hours ago, March 31, 8:00 p.m. Differential considered: Sepsis, empyema, pneumonia, recurrent pleural effusion concern for malignancy, acute coronary syndrome, congestive heart failure Exam documented above, pertinent findings include: Patient appears worse than when discharged approximately 8 hours ago. Pain has been adequately controlled he is currently having rigors, he is pale and he now has wheezing in all ventilated lung tariq which is a significant change Lab Test results independently reviewed as above. Pertinent findings: CBC shows no significant change in white count Chemistries are unchanged, no significant abnormalities and normal renal function Troponin is undetected BNP is low Procalcitonin is not elevated Independently reviewed EKG: Imaging studies independently reviewed: Chest x-ray on arrival this morning shows similar pleural effusion with concern for developing right upper lobe pneumonia. Postprocedure chest x-ray Consultations: Treatments: Thoracentesis for diagnostic and therapeutic purposes. Please see procedure note. Uncomplicated with dark fluid blood-tinged color total of approximately 1500cc removed. Please see procedure note Blood cultures have been obtained, pleural fluid obtained, Zosyn started. Patient is slightly nauseated prior to thoracentesis and Zofran is administered. 0.5 mg is administered near the end of the thoracentesis for pain control Re-evaluations: Patient is increasingly tachypneic and tachycardic as well as hypoxic when compared to visit 8 hours ago. Responds nicely to oxygen per nasal cannula. Discussion: 73-year-old gentleman with recently diagnosed left pleural effusion. CT scan of the chest did not show obvious malignancy. Almost 1100 cc were drained on March 29. He presents last night complaining of increasing pain which was seemingly adequately controlled with narcotics, he was instructed in use of incentive spirometer, no evidence of empyema or sepsis at that time. He returns this morning, approximately 8 hours later looking significantly worse. Chest x-ray prior to thoracentesis today suggests developing right upper lobe pneumonia which is consistent with a increasing wheezing and rhonchi appreciated on exam today. Thoracentesis with 1500 cc removed with sample sent for culture, Gram stain, cell count, LD, total protein. Initial sample from 03/29 was already sent for pathology so cytology was not ordered however additional fluid is available in the lab should that be requested. Care will be turned over to Dr. Perales at change of shift. Anticipate hospital admission. Dr. Perales-patient signed out to me by Dr. Kolb I have seen evaluated patient myself. He is had multiple ED visits new left-sided pleural effusion with recurrence in about 3 days. Was drained again today. He is still requiring oxygen despite having a left pleural effusion remove this morning. He is 88% on room air. He has a new right mid lobe infiltrate with fever and chills. Blood work surprisingly is overall reassuring without evidence of sepsis. But he is requiring oxygen. He has been given Zosyn. Does not meet severe sepsis criteria but does meet SIRS. Patient has had chest CT on March 29 which did not show any masses or nodules or lymph nodes. March [address] for left upper quadrant pain which was when left pleural effusion was diagnosed. No masses or enlarged lymph nodes found. 07:45 Dr. Preciado updated on test results concern for pneumonia hypoxia recurrent pleural effusion. Recommends transferred for recurrent pleural effusion 8:45 Dr. Christy, pulmonology [facility], updated on results, agrees patient would benefit from PleurX catheter, and probably CVT evaluation.confirmed CVT would be available 11:30 Dr. Varma, [facility] updated patient's symptoms test results and accepts patient Discharge Plan Departure Patient Disposition: [facility] Clinical Impression: Pleural effusion Right upper lobe pneumonia Qualifiers: Pneumonia type: due to unspecified organism Qualified Code(s): J18.9 - Pneumonia, unspecified organism Prescriptions: No Action cyclobenzaprine 5 mg tablet 5 mg PO BEDTIME tramadol 50 mg tablet 50 mg PO Q6H PRN (Reason: pain) Qty: 10 0RF meloxicam 7.5 mg tablet 7.5 mg PO BID PRN (Reason: pain) Qty: 10 0RF oxycodone 5 mg tablet 5 - 10 mg PO Q6H PRN (Reason: pain) Qty: 60 0RF naloxone [Narcan] 4 mg/actuation spray,non-aerosol 4 mg intranasal Q2M Qty: 2 0RF Rx Instructions: spray 1 dose into ONE nostril; alternate nostrils w each dose until help arrives lisinopril 20 mg tablet 20 mg PO QAM metformin 500 mg tablet extended release 24hr 1,000 mg PO BID atorvastatin 10 mg tablet 10 mg PO QAM polyethylene glycol 3350 [Miralax] 17 gram/dose powder 17 g PO QAM Referrals: Ej Espinoza DO [Primary Care Provider] - ED Sign-out <Jana Deshpande MD - Last Filed: 04/07/23 01:40> Cosign ED Attending Cosignature Attestation: I was immediately available in the department for consultation throughout this patient's visit. Jana Deshpande MD
--- NOTE | 2023-04-01 05:56 | DI.RAD.S_ITS ---
PROCEDURE: XR CHEST 1V INDICATIONS: New wheezing, reaccumulating pleural effusion TECHNIQUE: One view of the chest was acquired. COMPARISON: [facility], CR, XR CHEST 1V, 04/01/2023, 6:25. [facility], CT, CT CHEST W CON, 03/29/2023, 15:59. [facility], CR, XR CHEST 1V, 03/29/2023, 14:18. [facility], CR, XR CHEST 2V, 03/31/2023, 20:52. FINDINGS: Surgical changes and devices: None. Lungs and pleura: There is a moderately sized left-sided pleural effusion. Low lung volumes are noted. This causes a crowded appearance to the lung markings and limits evaluation. Within the right mid lung, there is worsening infiltrate. Mediastinum: Mediastinal contours appear normal. Heart size is normal. Bones and chest wall: No suspicious bony lesions. Overlying soft tissues appear unremarkable. IMPRESSION: Left-sided pleural effusion, similar to the prior. Worsening right midlung infiltrate. Note: No significant discrepancy from the preliminary report. Dictated by: Bebo Valdivia M.D. on 04/01/2023 at 6:22 Approved by: Bebo Valdivia M.D. on 04/01/2023 at 6:24
[2023-04-01] MEDS: ONDANSETRON 4 MG/2 ML INJ IV (06:12)
[2023-04-01 06:16] LABS: Add Manual Diff / Slide Review NO; Basophils Absolute Auto 100 /uL (0-100); Basophils Percent Auto 0.6 % (0-2); Eosinophils Absolute Auto 300 /uL (0-450); Eosinophils Percent Auto 2.9 % (2-4); Hematocrit 40.6 % (41-53); Hemoglobin 13.8 g/dL (13.5-17.5); Lymphocytes Absolute Auto 1300 /uL (1100-4500); Lymphocytes Percent Auto 14.6 % (25-40); Mean Corpuscular HGB Conc 34.1 % (30-36); Mean Corpuscular Hemoglobin 28.2 PG (26-34); Mean Corpuscular Volume 82.8 fL (80-100); Monocytes Absolute Auto 700 /uL (0-900); Monocytes Percent Auto 7.9 % (3-14); Neutrophils Absolute Auto 6400 /uL (1500-7000); Platelet Count 299 X10^3/uL (150-400); Red Cell Distribution Width 13.6 % (11.6-14.8); White Blood Cell Count 8.6 X10^3/uL (4.5-11.0)
[2023-04-01 06:29] LABS: Alanine Aminotransferase 16 IU/L (<50); Albumin 4.1 g/dL (3.5-5.0); Albumin Globulin Ratio 1.2 (1.0-2.8); Alkaline Phosphatase 72 U/L (38-126); Aspartate Aminotransferase 19 IU/L (17-59); BUN Creatinine Ratio 20.5 (6-22); Bilirubin Total 0.9 mg/dL (0.2-1.3); Blood Urea Nitrogen 23 mg/dL (9-20); Carbon Dioxide 25 mmol/L (22-32); Chloride 97 mmol/L (98-107); Estimated Glomerular Filt Rate > 60 mL/min (>60); Globulin 3.3 g/dL (1.7-4.1); Glucose 178 mg/dL (80-110); HEMOLYSIS < 15 (0-50); Potassium 4.5 mmol/L (3.4-5.1); Sodium 131 mmol/L (137-145); Total Protein 7.4 g/dL (6.3-8.2)
[2023-04-01] MEDS: HYDROMORPHONE 0.5 MG INJ IV (06:29)
[2023-04-01 06:30] LABS: Lactate (Lactic Acid) 1.8 mmol/L (0.7-2.1)
--- NOTE | 2023-04-01 06:31 | DI.RAD.S_ITS ---
PROCEDURE: XR CHEST 1V INDICATIONS: post thoracentesis TECHNIQUE: One view of the chest was acquired. COMPARISON: [facility], CR, XR CHEST 2V, 03/31/2023, 20:52. [facility], CR, XR CHEST 1V, 04/01/2023, 5:53. FINDINGS: Surgical changes and devices: None. Lungs and pleura: No pneumothorax is seen. The previously seen left-sided pleural effusion is largely resolved, with trace pleural fluid remaining. Poorly defined right midlung infiltrate can be seen. Streaky atelectasis can be seen at the left lung base. Mediastinum: Mediastinal contours appear normal. Heart size is normal. Bones and chest wall: No suspicious bony lesions. Age-appropriate bony degenerative changes are seen. Overlying soft tissues appear unremarkable. IMPRESSION: No post thoracentesis pneumothorax. Nearly resolved left-sided pleural effusion, with left lung base atelectasis. Right midlung infiltrate, which appears worse than on the prior examination, which may be related to a component of atelectasis. Dictated by: Bebo Valdivia M.D. on 04/01/2023 at 6:20 Approved by: Bebo Valdivia M.D. on 04/01/2023 at 6:22
--- NOTE | 2023-04-01 06:40 | PC.NURSE ---
0612 Zofran IV 4 mg provided 0615 Procedure Time Out with MD Deshpande, RN Lexie, RN Etta 0618 started procedure 06 60 cc Pleural fluid collected and walked to Lab. 800 cc pleural fluid from 1st canister and 2nd canister placed 06 8/10 chest pain during procedure MD requested 0.5 mg Dilaudid IV provided. 0631 Procedure completed. 2nd canister emptied 500 cc pleural fluid. 0634 Repeat Xray portable of chest at bedside. NS IV fluids at 100 ml/hr. Water PO provided. Tolerated procedure well. Supportive Oxygen 2L NC placed.
[2023-04-01 06:41] LABS: NT-proBNP (BNP-Adult 18+) 36 pg/mL (<125); Troponin I < 0.012 ng/mL (0.01-0.034)
[2023-04-01 06:46] LABS: Body Fluid Red Blood Cells 8768 /uL; Body Fluid Tot Nucleated Cells 1280 /uL
[2023-04-01] MEDS: PIPERACILLIN/TAZO 4.5 GM in SODIUM CHLORIDE 0.9% 100 ML IV (06:48)
[2023-04-01] MEDS: SODIUM CHLORIDE 0.9% 1,000 ML 100 ML IV (06:48)
[2023-04-01 07:09] LABS: Body Fluid Appearance SLIGHTLY CLOUDY; Body Fluid Color YELLOW
[2023-04-01 07:10] LABS: Body Fluid Clotted? NO CLOTS PRESENT; Mononuclear WBC Body Fluid 5 %; Polynuclear WBC Body Fluid 72 %
[2023-04-01 07:11] LABS: Eosinophils Body Fluid 2 %; Other Cells Body Fluid 21 %
[2023-04-01 08:23] LABS: Adenovirus Not Detected (Not Detect); B. parapertussis Not Detected (Not Detecte); Bordetella pertussis Not Detected (Not Detect); Chlamydophila pneumoniae Not Detected (Not Detect); Coronavirus 229E Not Detected (Not Detect); Coronavirus HKU1 Not Detected (Not Detect); Coronavirus NL 63 Not Detected (Not Detect); Coronavirus OC43 Not Detected (Not Detect); Human Metapneumovirus Not Detected (Not Detect); Human Rhinovirus/Enterovirus Not Detected (Not Detect); Influenza A Not Detected (Not Detect); Influenza B Not Detected (Not Detect); Mycoplasma pneumoniae Not Detected (Not Detect); Parainfluenza Virus 1 Not Detected (Not Detect); Parainfluenza Virus 2 Not Detected (Not Detect); Parainfluenza Virus 3 Not Detected (Not Detect); Parainfluenza Virus 4 Not Detected (Not Detect); Respiratory Syncytial Virus Not Detected (Not Detect); SARS- CoV-2 Not Detected (Not Detecte)
--- NOTE | 2023-04-01 08:29 | PM.CALLCOV.1 ---
Call Coverage Note Note Narrative of Care Provided: Medicine called for admission. This patient has a rapidly accumulating L sided pleural effusion. WBC is improved from the few prior days. Most recently drained on 03/29 with 1L removed, and again today. Fluid was bloody, and labs consistent with exudative effusion. Cultures from 03/29 are negative. I am unable to tell if cytology was sent from 03/29. There is an order from today's drainage for cytology. His procalcitonin is <0.25, and is afebrile. 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 I recommend transfer to a higher level facility for ongoing diagnostic evaluation of likely malignant and recurrent L pleural effusion and definitive management of this effusion.
[2023-04-01] MEDS: polyethylene glycoL 3350 17 GM POWD.PACK PO (09:13)
[2023-04-01] MEDS: METFORMIN HCL 500 MG TABLET 1000 MG PO (09:14)
[2023-04-01] MEDS: OXYCODONE IR 5 MG TABLET 10 MG PO (09:14)
[2023-04-01] MEDS: lisinopriL 10 MG TABLET PO (09:14)
[2023-04-01] MEDS: ATORVASTATIN 20 MG TABLET 10 MG PO (09:16)
[2023-04-01] MEDS: PIPERACILLIN/TAZO 3.375 GM in SODIUM CHLORIDE 0.9% 100 ML IV (12:38)
[2023-04-02 21:52] LABS: Labcorp LDH, Body Fluid 3029 IU/L (.); Labcorp Total Prot, Body Fluid 4.6 g/dL (.)
== END 2023-04-01 13:50 | disposition short-term general hospital (02) ==
PROVIDERS: Emergency Medicine; Emergency Provider Emergency Medicine; PCP Family Medicine
DX: J90 Pleural effusion, not elsewhere classified (principal); J18.9 Pneumonia, unspecified organism; R00.0 Tachycardia, unspecified; Z20.822 Contact with and (suspected) exposure to COVID-19; Z79.01 Long term (current) use of anticoagulants
CPT/HCPCS: 32555; 36415; 51798; 71045; 80053; 83605; 83615; 83880; 84145; 84157; 84484; 85025; 87040; 87070; 87075; 87205; 87633; 89051; 93005; 96365; 96366; 96375; 99285; J1170; J2405; J2543

== ENCOUNTER → 2023-04-09 16:29 | Outpatient (CLI) | payer MEDICARE, SELFPAY ==
--- NOTE | 2023-04-09 16:32 | DI.RAD.S_ITS ---
PROCEDURE: XR CHEST 2V INDICATIONS: F/u pneumonia, pleural effusion TECHNIQUE: 2 views of the chest were acquired. COMPARISON: [facility], CR, XR CHEST 1V, 04/01/2023, 6:25. FINDINGS: Surgical changes and devices: None. Lungs and pleura: Compared to prior radiograph 04/01/2023, increased aeration of right mid lung. Increased density at the left lung base with increased pleural effusion. No pneumothorax Mediastinum: Mediastinal contours are normal. Heart size is normal. Bones and chest wall: No suspicious bony abnormalities. Soft tissues appear unremarkable. IMPRESSION: Compared to prior radiograph 04/01/2023, decreased consolidation seen in the right lung, but increased left basilar consolidation and pleural effusion. Dictated by: Aylin Regalado M.D. on 04/09/2023 at 18:07 Approved by: Aylin Regalado M.D. on 04/09/2023 at 18:09
== END ==
PROVIDERS: PCP Family Medicine; Referring Provider Family Medicine; Visit Provider Family Medicine
DX: J90 Pleural effusion, not elsewhere classified (principal); J18.9 Pneumonia, unspecified organism; R07.81 Pleurodynia; Z98.890 Other specified postprocedural states
CPT/HCPCS: 71046

== ENCOUNTER → 2023-04-12 09:11 | Outpatient (CLI) | payer MEDICARE, SELFPAY ==
[2023-04-12 11:00] LABS: INR 1.3 (0.9-1.3); Prothrombin Time 14.5 SECONDS (9.4-12.5)
[2023-04-12 11:06] LABS: Cholesterol 132 mg/dL (140-199)
[2023-04-12 11:07] LABS: BUN Creatinine Ratio 21.3 (6-22); Blood Urea Nitrogen 19 mg/dL (9-20); Calcium 9.5 mg/dL (8.4-10.2); Carbon Dioxide 27 mmol/L (22-32); Chloride 101 mmol/L (98-107); Estimated Glomerular Filt Rate > 60 mL/min (>60); Glucose 148 mg/dL (80-110); HEMOLYSIS < 15 (0-50); Potassium 4.9 mmol/L (3.4-5.1); Sodium 137 mmol/L (137-145)
[2023-04-12 11:18] LABS: Lactate Dehydrogenase 131 U/L (120-246)
== END ==
PROVIDERS: PCP Family Medicine; Referring Provider Internal Medicine Critical Care Medicine; Visit Provider Internal Medicine Critical Care Medicine
DX: Z01.812 Encounter for preprocedural laboratory examination (principal); J90 Pleural effusion, not elsewhere classified
CPT/HCPCS: 36415; 80048; 82465; 83615; 85610; 99214

== ENCOUNTER → 2023-04-15 09:07 | Outpatient (CLI) | payer MEDICARE, SELFPAY ==
--- NOTE | 2023-04-15 09:09 | DI.CT.S_ITS ---
PROCEDURE: CT CHEST W CON INDICATIONS: Pleural effusion, eval for interval change TECHNIQUE: After the administration of intravenous contrast, 5 mm thick sections acquired from the pulmonary apices to the posterior costophrenic angles. 1 mm axial lung, 5 mm thick coronal and sagittal reformats and 7 mm axial MIP were acquired. For radiation dose reduction, the following was used: automated exposure control, adjustment of mA and/or kV according to patient size. COMPARISON: [facility], CT, CT ABDOMEN PELVIS W CON, 03/22/2023, 12:55. [facility], CT, CT CHEST WITH CONTRAST, 04/01/2023, 21:30. [facility], CT, CT CHEST W CON, 03/29/2023, 15:59. FINDINGS: Image quality: Diagnostic. Lower Neck: No enlarged lymph nodes. Thyroid: No thyroid nodules which require sonographic follow up, per consensus guidelines. Axillae: No enlarged lymph nodes. Chest Wall: Unremarkable. Bones: Unremarkable. Lungs and Pleura: Interval decrease in size of the left pleural effusion, now trace. Pleural thickening is present. Suspected mass in the medial left lower lobe measuring 3.0 x 3.0 cm (series 2, image 44), better seen on today's examination due to lack of atelectasis. Resolved multifocal infection. Elevation of the left hemidiaphragm. Heart: Heart size is normal. No pericardial effusion. Minimal coronary artery calcifications. Thoracic Vessels: The aorta and pulmonary arteries demonstrate normal size. Mediastinum and Judy: No enlarged lymph nodes. Calcified mediastinal lymph nodes and hilar nodes. Esophagus: No wall thickening. No hiatal hernia. Upper Abdomen: Hepatic cyst at the liver dome. IMPRESSION: Suspected mass in the medial left lower lobe measuring 3.0 x 3.0 cm, better seen on today's examination due to lack of adjacent atelectasis. Consider PET-CT for confirmation, as this location would be technically difficult for tissue sampling. Trace left pleural effusion, decreased from prior. Left-sided pleural thickening is present, also remaining suspicious for malignant effusion. Results multifocal infection. Dictated by: Juan Miguel Garsia M.D. on 04/15/2023 at 9:39 Approved by: Juan Miguel Garsia M.D. on 04/15/2023 at 9:51
== END ==
PROVIDERS: PCP Family Medicine; Referring Provider Internal Medicine Critical Care Medicine; Visit Provider Internal Medicine Critical Care Medicine
DX: J90 Pleural effusion, not elsewhere classified (principal); K76.89 Other specified diseases of liver
CPT/HCPCS: 71260; Q9967

== ENCOUNTER → 2023-06-03 08:30 | Outpatient (CLI) | payer MEDICARE, SELFPAY ==
--- NOTE | 2023-06-03 08:32 | DI.CT.S_ITS ---
PROCEDURE: CT CHEST W CON INDICATIONS: Lung mass or atelectasis, eval for interval change TECHNIQUE: After the administration of intravenous contrast, 5 mm thick sections acquired from the pulmonary apices to the posterior costophrenic angles. 1 mm axial lung, 5 mm thick coronal and sagittal reformats and 7 mm axial MIP were acquired. For radiation dose reduction, the following was used: automated exposure control, adjustment of mA and/or kV according to patient size. COMPARISON: [facility], CT, CT CHEST WITH CONTRAST, 04/01/2023, 21:30. [facility], [place], PET NECK TO MID THIGH, 05/03/2023, 14:30. [facility], CT, CT CHEST W CON, 04/15/2023, 9:22. FINDINGS: Image quality: Diagnostic. Lower Neck: No enlarged lymph nodes. Thyroid: No thyroid nodules which require sonographic follow up, per consensus guidelines. Axillae: No enlarged lymph nodes. Chest Wall: Unremarkable. Bones: Unremarkable. Lungs and Pleura: Small, loculated left-sided pleural effusion. Growing mass in the medial left lower lobe measuring 4.6 x 3.7 cm, previously 3.0 x 3.0 cm (series 2, image 51). Heart: Heart size is normal. No pericardial effusion. Thoracic Vessels: The aorta and pulmonary arteries demonstrate normal size. Mediastinum and Judy: Growing left hilar node measuring 1.9 cm short axis, previously less than 1 cm (series 2, image 39). Esophagus: No wall thickening. No hiatal hernia. Upper Abdomen: Stable 1.6 cm hypoattenuating slight interval growth of the 1.6 cm segment 7 lesion, previously 1.3 cm easing similar measuring techniques (series 2, image 59) IMPRESSION: Growing mass in the medial left lower lobe measuring 4.6 x 3.7 cm, previously 3.0 x 3.0 cm. Growing left hilar node, previously demonstrating FDG uptake. Growing right hepatic liver lesion with indeterminate attenuation. Consider MRI for further characterization. Dictated by: Juan Miguel Garsia M.D. on 06/03/2023 at 11:09 Approved by: Juan Miguel Garsia M.D. on 06/03/2023 at 11:19
[2023-06-03 08:53] LABS: Estimated Glomerular Filt Rate > 60 mL/min (>60)
== END ==
LOC: CT 08:32
PROVIDERS: Family Medicine; PCP Family Medicine; Referring Provider Internal Medicine Critical Care Medicine; Visit Provider Internal Medicine Critical Care Medicine
DX: J90 Pleural effusion, not elsewhere classified (principal); R91.8 Other nonspecific abnormal finding of lung field; K76.9 Liver disease, unspecified
CPT/HCPCS: 36415; 71260; 82565; Q9967

== ENCOUNTER → 2023-06-11 11:48 | Outpatient (CLI) | payer MEDICARE, SELFPAY ==
--- NOTE | 2023-06-11 11:50 | DI.MRI.S_ITS ---
PROCEDURE: MR ABDOMEN LIVER PROTOCOL INDICATIONS: Liver lesion on CT. Lung mass TECHNIQUE: Coronal HASTE, axial 2D FLASH in- and [id number]; axial breath-hold T2 FSE. Dynamic axial VIBE during the administration of contrast; post-contrast coronal VIBE or 2D FLASH with fat saturation from the hepatic dome to the iliac crests. Optional diffusion weighted imaging and ADC may be performed. COMPARISON: [facility], CT, CT CHEST W CON, 04/15/2023, 9:22. [facility], CT, CT CHEST WITH CONTRAST, 04/01/2023, 21:30. [facility], CT, CT CHEST W CON, 06/03/2023, 9:28. [facility], [place], PET NECK TO MID THIGH, 05/03/2023, 14:30. FINDINGS: Image quality: Diagnostic. Lung bases: Lesion at the left cardiophrenic angle. Pericardial nodule. Thickening at the left diaphragmatic harika. Opacity at the left lung base. Liver: No solid mass. Small T2 hyperintense cysts. Attention to the cyst in the right lobe of the liver. No suspicious enhancement. No restricted diffusion. Gallbladder: No gallstones or wall thickening. Biliary ducts: No biliary dilation. Pancreas: No ductal dilation. Spleen: Spleen appears mildly enlarged measuring 13.9 cm in craniocaudal dimension. Small cyst in the spleen. Adrenal Glands: No adrenal nodules. Kidneys and Ureters: No hydronephrosis. No solid mass. No complex renal cystic lesion which requires follow up. Stomach and Bowel: Normal colonic caliber, without significant wall thickening. Peritoneum: No abnormal intraperitoneal fluid. No free air. Ventral Wall: No hernia. Abdominal Nodes: No retroperitoneal or mesenteric adenopathy by size criteria. Vessels: Aorta and inferior vena cava are normal in size. Bones: No aggressive osseous abnormality. IMPRESSION: 1. No suspicious hepatic lesion. Small benign hepatic cysts. 2. Lesion at the left cardiophrenic angle. Nodules at the left diaphragmatic harika and left apex. Dictated by: Mahesh Raines M.D. on 06/11/2023 at 16:01 Approved by: Mahesh Raines M.D. on 06/11/2023 at 16:15
== END ==
PROVIDERS: PCP Family Medicine; Referring Provider Family Medicine; Visit Provider Family Medicine
DX: K76.89 Other specified diseases of liver (principal); R91.8 Other nonspecific abnormal finding of lung field; D73.4 Cyst of spleen; R10.9 Unspecified abdominal pain
CPT/HCPCS: 74183; A9579

== ENCOUNTER → 2023-09-11 11:31 | Outpatient (CLI) | payer MEDICARE, SELFPAY ==
[2023-09-11 14:10] LABS: Hemoglobin A1C% w Est Avg Glu 8.1 % (4.0-6.0)
== END ==
PROVIDERS: PCP Family Medicine; Referring Provider Family Medicine; Visit Provider Family Medicine
DX: E11.65 Type 2 diabetes mellitus with hyperglycemia (principal)
CPT/HCPCS: 36415; 83036

== ENCOUNTER → 2023-12-13 11:49 | Outpatient (CLI) | payer MEDICARE, SELFPAY ==
[2023-12-13 13:40] LABS: Hemoglobin A1C% w Est Avg Glu 6.8 % (4.0-6.0)
[2023-12-13 13:44] LABS: Blood Urea Nitrogen 20 mg/dL (9-20); Carbon Dioxide 25 mmol/L (22-32); Chloride 103 mmol/L (98-107); Estimated Glomerular Filt Rate > 60 mL/min (>60); Glucose 226 mg/dL (80-110); HEMOLYSIS < 15 (0-50); Sodium 137 mmol/L (137-145)
== END ==
PROVIDERS: PCP Family Medicine; Referring Provider Family Medicine; Visit Provider Family Medicine
DX: E11.65 Type 2 diabetes mellitus with hyperglycemia (principal); I10 Essential (primary) hypertension
CPT/HCPCS: 36415; 80048; 83036

== ENCOUNTER → 2024-02-21 14:18 | Outpatient (CLI) | payer MEDICARE, SELFPAY ==
--- NOTE | 2024-02-21 14:20 | DI.RAD.S_ITS ---
PROCEDURE: XR CHEST 2V INDICATIONS: Shortness of breath, h/o mesothelioma, eval for change TECHNIQUE: 2 views of the chest were acquired. COMPARISON: [facility], CR, XR CHEST 2V, 04/09/2023, 16:32. [facility], CR, XR CHEST 1V, 04/01/2023, 6:25. FINDINGS: Surgical changes and devices: None. Lungs and pleura: Similar appearance of left basilar effusion/opacity. Mediastinum: Mediastinal contours are normal. Heart size is normal. Bones and chest wall: No suspicious bony abnormalities. Soft tissues appear unremarkable. IMPRESSION: Similar appearance of left basilar effusion/opacity, better evaluated on prior CT. Dictated by: Lorenzo Nixon M.D. on 02/21/2024 at 16:29 Approved by: Lorenzo Nixon M.D. on 02/21/2024 at 16:30
[2024-02-21 15:19] LABS: Add Manual Diff / Slide Review NO; Basophils Absolute Auto 100 /uL (0-100); Eosinophils Absolute Auto 100 /uL (0-450); Eosinophils Percent Auto 1.5 % (2-4); Hematocrit 28.4 % (41-53); Hemoglobin 9.1 g/dL (13.5-17.5); Lymphocytes Absolute Auto 1200 /uL (1100-4500); Lymphocytes Percent Auto 12.9 % (25-40); Mean Corpuscular HGB Conc 31.9 % (30-36); Mean Corpuscular Hemoglobin 23.2 PG (26-34); Mean Corpuscular Volume 72.8 fL (80-100); Monocytes Absolute Auto 1200 /uL (0-900); Monocytes Percent Auto 12.5 % (3-14); Neutrophils Absolute Auto 6900 /uL (1500-7000); Neutrophils Percent Auto 72.1 % (50-75); Platelet Count 459 X10^3/uL (150-400); Red Cell Distribution Width 16.8 % (11.6-14.8); White Blood Cell Count 9.5 X10^3/uL (4.5-11.0)
[2024-02-21 15:38] LABS: Alanine Aminotransferase 14 IU/L (<50); Albumin 3.6 g/dL (3.5-5.0); Albumin Globulin Ratio 0.9 (1.0-2.8); Alkaline Phosphatase 80 U/L (38-126); Aspartate Aminotransferase 17 IU/L (17-59); BUN Creatinine Ratio 23.2 (6-22); Bilirubin Total 0.3 mg/dL (0.2-1.3); Blood Urea Nitrogen 22 mg/dL (9-20); Calcium 9.1 mg/dL (8.4-10.2); Carbon Dioxide 28 mmol/L (22-32); Chloride 104 mmol/L (98-107); Cholesterol 103 mg/dL (140-199); Estimated Glomerular Filt Rate > 60 mL/min (>60); Globulin 3.8 g/dL (1.7-4.1); Glucose 208 mg/dL (80-110); HDL Cholesterol 24 mg/dL (40-60); HEMOLYSIS < 15 (0-50); LDL Cholesterol Calculated 67 mg/dL (<100); Potassium 4.8 mmol/L (3.4-5.1); Sodium 139 mmol/L (137-145); Total Protein 7.4 g/dL (6.3-8.2); Triglycerides 60 mg/dL (35-150)
[2024-02-21 15:40] LABS: Hemoglobin A1C% w Est Avg Glu 8.2 % (4.0-6.0)
[2024-02-21 16:06] LABS: Microalbumin Urine Random 0.9 mg/dL (0-1.6)
[2024-02-24 16:11] LABS: Hep C Virus Ab w/Reflex Quant NEGATIVE s/c (NEGATIVE)
== END ==
PROVIDERS: PCP Family Medicine; Referring Provider Internal Medicine Critical Care Medicine; Visit Provider Internal Medicine Critical Care Medicine
DX: Z00.00 Encounter for general adult medical examination without abnormal findings (principal); R06.02 Shortness of breath; E11.65 Type 2 diabetes mellitus with hyperglycemia; C45.7 Mesothelioma of other sites; E78.5 Hyperlipidemia, unspecified; I10 Essential (primary) hypertension; J98.4 Other disorders of lung; J90 Pleural effusion, not elsewhere classified
CPT/HCPCS: 36415; 71046; 80053; 80061; 82043; 82570; 83036; 85025; 86803

== ENCOUNTER → 2024-03-13 17:10 | Outpatient (CLI) | payer MEDICARE, SELFPAY ==
[2024-03-13 17:39] LABS: Reticulocyte Count, Percent 1.4 % (0.9-2.6)
[2024-03-13 18:40] LABS: Ferritin 721 ng/mL (18-464)
[2024-03-13 18:45] LABS: HEMOLYSIS < 15 (0-50); Iron 23 ug/dL (49-181)
[2024-03-13 18:51] LABS: Percent Iron Saturation 12 % (20-50); Total Iron Binding Capacity 185 ug/dL (261-462); Transferrin 146 mg/dL (206-381)
== END ==
PROVIDERS: PCP Family Medicine; Referring Provider Family Medicine; Visit Provider Family Medicine
DX: D50.9 Iron deficiency anemia, unspecified (principal)
CPT/HCPCS: 36415; 82728; 83540; 83550; 85045

== ENCOUNTER → 2024-03-31 14:44 | Outpatient (CLI) | payer MEDICARE, SELFPAY ==
--- NOTE | 2024-03-31 14:46 | DI.US.S_ITS ---
PROCEDURE: US PERIPH VENOUS LOW EXTREM BI INDICATIONS: PAIN; HISTORY MESOTHELIOMA TECHNIQUE: Real-time imaging, as well as color and pulse Doppler interrogation, were performed of the deep veins of both legs from the inguinal ligament to the popliteal fossa, with documentation of the visualized calf veins. COMPARISON: None. FINDINGS: Right: The common femoral, femoral, popliteal, and the visualized calf veins are normally compressible, and free of intraluminal thrombus. Color and pulse Doppler demonstrate normal phasic intravascular flow. There is normal augmentation response to distal compression maneuver. Left: The common femoral, femoral, popliteal, and the visualized calf veins are normally compressible, and free of intraluminal thrombus. Color and pulse Doppler demonstrate normal phasic intravascular flow. There is normal augmentation response to distal compression maneuver. IMPRESSION: No findings of deep venous thrombosis in either lower extremity. Dictated by: Lorenzo Nixon M.D. on 03/31/2024 at 15:27 Approved by: Lorenzo Nixon M.D. on 03/31/2024 at 15:28
== END ==
PROVIDERS: PCP Family Medicine; Referring Provider Internal Medicine Critical Care Medicine; Visit Provider Internal Medicine Critical Care Medicine
DX: M79.89 Other specified soft tissue disorders (principal)
CPT/HCPCS: 93970

== ENCOUNTER 2024-05-05 16:35 | Emergency (ER) | payer MEDICARE, SELFPAY ==
[2024-05-05] VITALS (7 sets, daily range): BP systolic 134–155; BP diastolic 65–74; PULSE 92–100; RESP 19–23; TEMP 37.1; O2SAT 95–97; BMI 24.3
--- NOTE | 2024-05-05 16:52 | DI.RAD.S_ITS ---
PROCEDURE: XR CHEST 1V INDICATIONS: suspected sepsis TECHNIQUE: One view of the chest was acquired. COMPARISON: [facility], CR, XR CHEST 2V, 02/21/2024, 14:24. [facility], CR, XR CHEST 2V, 04/09/2023, 16:32. FINDINGS: Surgical changes and devices: None. Lungs and pleura: Left lower lobe consolidation. Small left pleural effusion suspected. No pneumothorax. Mediastinum: Mediastinal contours appear normal. Heart size is normal. Bones and chest wall: No suspicious bony lesions. Overlying soft tissues appear unremarkable. IMPRESSION: Left lower lobe consolidation concerning for pneumonia. Small left pleural effusion suspected. Dictated by: Mahesh Raines M.D. on 05/05/2024 at 18:02 Approved by: Mahesh Raines M.D. on 05/05/2024 at 18:05
--- NOTE | 2024-05-05 17:05 | EKG_ITS ---
[place] [id number] [place] [id number] Test Date: 2024-05-05 Pat Name: Blaze Dickinson Department: [facility] Room: Gender: Male Clark Driver: francisca : 1950 Requested By: Order Number: [id number] Reading MD: Jose Alberto Preciado Measurements Intervals [place] Rate: 101 P: 67 CO: 142 QRS: -39 QRSD: 112 T: 30 QT: 372 QTc: 482 Interpretive Statements Sinus tachycardia Left axis deviation Electronically Signed On 05-07-2024 20:04:02 PST by Jose Alberto Preciado
[2024-05-05 17:25] LABS: Add Manual Diff / Slide Review NO; Basophils Absolute Auto 0 /uL (0-100); Basophils Percent Auto 0.4 % (0-2); Eosinophils Absolute Auto 100 /uL (0-450); Eosinophils Percent Auto 0.6 % (2-4); Hematocrit 29.1 % (41-53); Hemoglobin 9.1 g/dL (13.5-17.5); Lymphocytes Absolute Auto 600 /uL (1100-4500); Lymphocytes Percent Auto 5.6 % (25-40); Mean Corpuscular HGB Conc 31.1 % (30-36); Mean Corpuscular Hemoglobin 21.9 PG (26-34); Mean Corpuscular Volume 70.2 fL (80-100); Monocytes Absolute Auto 100 /uL (0-900); Monocytes Percent Auto 1.3 % (3-14); Neutrophils Absolute Auto 9200 /uL (1500-7000); Neutrophils Percent Auto 92.1 % (50-75); Platelet Count 435 X10^3/uL (150-400); Red Blood Cell Count 4.15 X10^6/uL (4.5-5.9); Red Cell Distribution Width 18.6 % (11.6-14.8)
[2024-05-05 17:38] LABS: INR 1.7 (0.9-1.3); Prothrombin Time 19.1 SECONDS (9.4-12.5)
[2024-05-05 17:41] LABS: PTT Partial Thromboplastin Tim 36 SECONDS (25.1-36.5)
[2024-05-05 17:42] LABS: Lactate (Lactic Acid) 1.1 mmol/L (0.7-2.1)
[2024-05-05 17:43] LABS: Alanine Aminotransferase 17 IU/L (<50); Albumin 3.5 g/dL (3.5-5.0); Albumin Globulin Ratio 0.9 (1.0-2.8); Alkaline Phosphatase 94 U/L (38-126); Aspartate Aminotransferase 20 IU/L (17-59); BUN Creatinine Ratio 25.5 (6-22); Bilirubin Total 0.5 mg/dL (0.2-1.3); Blood Urea Nitrogen 24 mg/dL (9-20); Calcium 8.8 mg/dL (8.4-10.2); Carbon Dioxide 28 mmol/L (22-32); Chloride 99 mmol/L (98-107); Estimated Glomerular Filt Rate > 60 mL/min (>60); Globulin 3.7 g/dL (1.7-4.1); Glucose 252 mg/dL (80-110); HEMOLYSIS < 15 (0-50); Lipase 60 U/L (23-300); Potassium 4.3 mmol/L (3.4-5.1); Sodium 133 mmol/L (137-145); Total Protein 7.2 g/dL (6.3-8.2)
[2024-05-05 17:59] LABS: Procalcitonin 0.303 ng/mL (<0.5)
[2024-05-05 18:00] LABS: Influenza A - CEPHEID Flu A NEGATIVE (NEGATIVE); Influenza B - CEPHEID Flu B NEGATIVE (NEGATIVE); Respiratory Syncytial Virus Negative (Negative)
[2024-05-05 18:01] LABS: COVID-19 CEPHEID 4-PLEX PCR Negative (Negative)
--- NOTE | 2024-05-05 19:00 | ED_ITS ---
HPI - General Adult General Chief complaint: Fever Stated complaint: sent by MD for labs and work up Time Seen by Provider: 05/05/24 18:18 Source: patient Mode of arrival: Family Vehicle History of Present Illness HPI narrative: 74-year-old male here with fever in context of chemotherapy, concern for possible neutropenic fever. History of mesothelioma diagnosis June 2023, status post 4 rounds of chemotherapy at [facility] via oncologist Dr. Womack, from June through September 2023, reported good tumor shrinkage response, off chemotherapy since September, recent weeks increased chest symptoms, interval repeat CT chest shows recurrence of left chest tumor, restarted IV chemotherapy via peripheral line infusion on Saturday four days ago, today felt feverish, temperature at home 102 today, denies cough or shortness of breath or new chest discomfort. Has some nausea, without vomiting, no loose stools or black or red stools. Denies abdominal pain. Denies painful or frequent urination. Denies headache, neck pain, photophobia. Here for evaluation, neutropenic precautions initiated. Related Data Home Medications Medication Instructions Recorded Confirmed polyethylene glycol 3350 17 17 g PO QAM 04/01/23 04/20/24 gram/dose oral powder (Miralax) Previous Rx's Medication Instructions Recorded insulin glargine 100 unit/mL (3 10 unit (0.1 mL) SUBCUT QPM #15 mL 03/18/24 mL) subcutaneous pen (Lantus Solostar U-100 Insulin) glimepiride 1 mg tablet 2 mg (2 x 1 mg) PO DAILY #180 tabs 03/19/24 atorvastatin 10 mg tablet 10 mg PO QAM cholesterol #90 tabs 03/23/24 pen needle, diabetic 32 gauge x #100 ea 03/24/2406/21 (CareFine Pen Needle) pioglitazone 30 mg tablet (Actos) 30 mg PO DAILY diabetes #90 tabs 04/16/24 tramadol 50 mg tablet 50 mg PO Q6H PRN pain #120 tabs 04/28/24 azithromycin 250 mg tablet See Rx Instructions PO .COMPLEX #6 05/05/24 tabs cefdinir 300 mg capsule 300 mg PO BID 10 days #20 caps 05/05/24 Allergies Allergy/AdvReac Type Severity Reaction Status Date / Time No Known Drug Allergies Allergy Verified 05/05/24 16:51 Patient History Medical History Iron (Fe) deficiency anemia Encounter for subsequent annual wellness visit (AWV) in Medicare patient Restrictive lung disease Mesothelioma of left lung Lung nodules Mass of left lung Pleural effusion, left Hiatal hernia Hyperlipidemia Benign essential HTN Type 2 diabetes mellitus with hyperglycemia, without long-term current use of insulin Social History Smoking Status: Former smoker Smoking Status: Former smoker tobacco type: cigarettes Exam Narrative Exam Narrative: GENERAL: Well-developed patient, in mild distress. HEAD: Atraumatic. Normocephalic. EYES: Pupils equal round and reactive. Extraocular motions intact. No scleral icterus. No injection or drainage. ENT: Nose without bleeding, purulent drainage. Throat without erythema, tonsillar hypertrophy or exudate. Airway patent. NECK: Trachea midline. Non tender CARDIOVASCULAR: Regular rate and rhythm without murmurs, gallops, or rubs. RESPIRATORY: Clear to auscultation. Breath sounds equal bilaterally. No wheezes, rales, or rhonchi. GASTROINTESTINAL: Abdomen soft, non-tender, nondistended. EXTREMITIES: No edema or joint tenderness. BACK: Nontender without deformity or crepitance. No flank tenderness. NEURO: AOx3. Motor functions grossly nonfocal SKIN: No rash or erythema of visible areas Initial Vital Signs Initial Vital Signs: Vital Signs Temperature 98.7 F 05/05/24 16:45 Pulse Rate 100 H 05/05/24 16:45 Respiratory Rate 19 05/05/24 16:45 Blood Pressure 135/65 05/05/24 16:45 Pulse Oximetry 97 05/05/24 16:45 Oxygen Delivery Method Room Air 05/05/24 16:45 Course Orders Ordered: Discontinued Medications Azithromycin (Azithromycin 250 Mg Tablet) 500 mg PO NOW ONE Stop: 05/05/24 19:03 Last Admin: 05/05/24 19:12 Dose: 500 mg Documented By: JW Sodium Chloride (Normal Saline 0.9%) 1,000 mls @ 1,000 mls/hr IV BOLUS ONE Stop: 05/05/24 17:51 Last Admin: 05/05/24 19:28 Dose: Not Given Documented By: JW Vancomycin HCl 2,000 mg/ (Sodium Chloride) 500 mls @ 250 mls/hr IV NOW ONE Stop: 05/05/24 19:02 Last Admin: 05/05/24 19:08 Dose: Not Given Documented By: JW Cefepime HCl 2 gm/ Sodium (Chloride) 100 mls @ 200 mls/hr IV NOW ONE Stop: 05/05/24 19:03 Last Admin: 05/05/24 19:08 Dose: Not Given Documented By: JW Ceftriaxone Sodium 1,000 mg/ (Sodium Chloride) 100 mls @ 200 mls/hr IV NOW ONE Stop: 05/05/24 19:07 Last Infusion: 05/05/24 19:56 Dose: Infused Documented By: Admin: 05/05/24 19:13 Dose: 200 mls/hr Documented By: JW Ondansetron HCl (Ondansetron 4 Mg/2 Ml Inj) 4 mg IV NOW PRN PRN Reason: Nausea And Vomiting Last Admin: 05/05/24 21:02 Dose: 4 mg Documented By: VANE Ondansetron HCl (Ondansetron 4 Mg Odt) 4 mg SL NOW PRN PRN Reason: Nausea And Vomiting Oxycodone HCl (Oxycodone Ir 5 Mg Tablet) 5 mg PO NOW ONE Stop: 05/05/24 20:59 Last Admin: 05/05/24 21:02 Dose: 5 mg Documented By: VANE Vital Signs Vital signs: Vital Signs - 8 hr 05/05/24 20:30 05/05/24 20:30 05/05/24 21:00 Pulse Rate 98 H Respiratory Rate 23 Blood Pressure 155/74 H 152/72 H Pulse Oximetry 95 Oxygen Delivery Method Room Air 05/05/24 21:00 05/05/24 21:30 05/05/24 21:30 Pulse Rate 96 H 92 H Respiratory Rate 23 23 Blood Pressure 134/71 Pulse Oximetry 97 95 Oxygen Delivery Method Room Air Room Air Medical Decision Making Lab Data Lab results reviewed: Yes I reviewed the patient's lab results. Lab results narrative: White blood cell count 08955, hemoglobin 9.1, platelets 819154. Glucose 252. Renal function normal, sodium 133, other basic metabolic panel components unremarkable. Respiratory panel negative. 05/05/24 17:12 05/05/24 17:12 Labs: Lab Results 05/05/24 05/05/24 05/05/24 Range/Units 16:57 16:57 16:57 WBC (4.5-11.0) X10^3/uL RBC (4.5-5.9) X10^6/uL Hgb (13.5-17.5) g/dL Hct (41-53) % MCV (80-100) fL MCH (26-34) PG MCHC (30-36) % RDW (11.6-14.8) % Plt Count (150-400) X10^3/uL Neut % (Auto) (50-75) % Lymph % (Auto) (25-40) % [place] % (Auto) (3-14) % Eos % (Auto) (2-4) % Baso % (Auto) (0-2) % Neut # (Auto) (8278-4640) /uL Lymph # (Auto) (5757-9426) /uL [place] # (Auto) (0-900) /uL Eos # (Auto) (0-450) /uL Baso # (Auto) (0-100) /uL PT (9.4-12.5) SECONDS INR (0.9-1.3) APTT (25.1-36.5) SECONDS Sodium (137-145) mmol/L Potassium (3.4-5.1) mmol/L Chloride (98-107) mmol/L Carbon Dioxide (22-32) mmol/L BUN (9-20) mg/dL Creatinine (0.66-1.25) mg/dL Estimated GFR (>60) mL/min BUN/Creatinine Ratio (6-22) Glucose (80-110) mg/dL Lactate (0.7-2.1) mmol/L Calcium (8.4-10.2) mg/dL Total Bilirubin (0.2-1.3) mg/dL AST (17-59) IU/L ALT (<50) IU/L Alkaline Phosphatase (38-126) U/L Total Protein (6.3-8.2) g/dL Albumin (3.5-5.0) g/dL Globulin (1.7-4.1) g/dL Albumin/Globulin Ratio (1.0-2.8) Lipase (23-300) U/L Procalcitonin (<0.5) ng/mL Chlamy pneumoniae PCR Not detected (Not Detect) Adenovirus (PCR) Not detected (Not Detect) B. pertussis DNA (PCR) Not detected (Not Detect) B.parapertussis DNA PCR Not detected (Not Detecte) Coronavirus OC43 (PCR) Not detected (Not Detect) Coronavirus HKU1 (PCR) Not detected (Not Detect) Coronavirus 229E (PCR) Not detected (Not Detect) SARS-CoV-2 (PCR) Negative Not detected (Negative) Coronavirus NL63 (PCR) Not detected (Not Detect) Human Metapneumovir PCR Not detected (Not Detect) Influenza A (RT-PCR) Flu a negative (NEGATIVE) Influenza Type A (PCR) Not detected (Not Detect) Influenza B (RT-PCR) Flu b negative (NEGATIVE) Influenza Type B (PCR) Not detected (Not Detect) M. pneumoniae (PCR) Not detected (Not Detect) Parainfluenza 1 (PCR) Not detected (Not Detect) Parainfluenza 2 (PCR) Not detected (Not Detect) Parainfluenza 3 (PCR) Not detected (Not Detect) Parainfluenza 4 (PCR) Not detected (Not Detect) RSV (PCR) Negative Not detected (Negative) Entero/Rhino (PCR) Not detected (Not Detect) 05/05/24 Range/Units 17:12 WBC 10.0 (4.5-11.0) X10^3/uL RBC 4.15 L (4.5-5.9) X10^6/uL Hgb 9.1 L (13.5-17.5) g/dL Hct 29.1 L (41-53) % MCV 70.2 L (80-100) fL MCH 21.9 L (26-34) PG MCHC 31.1 (30-36) % RDW 18.6 H (11.6-14.8) % Plt Count 435 H (150-400) X10^3/uL Neut % (Auto) 92.1 H (50-75) % Lymph % (Auto) 5.6 L (25-40) % [place] % (Auto) 1.3 L (3-14) % Eos % (Auto) 0.6 L (2-4) % Baso % (Auto) 0.4 (0-2) % Neut # (Auto) 9200 H (4183-7591) /uL Lymph # (Auto) 600 L (8792-0870) /uL [place] # (Auto) 100 (0-900) /uL Eos # (Auto) 100 (0-450) /uL Baso # (Auto) 0 (0-100) /uL PT 19.1 H (9.4-12.5) SECONDS INR 1.7 H (0.9-1.3) APTT 36 (25.1-36.5) SECONDS Sodium 133 L (137-145) mmol/L Potassium 4.3 (3.4-5.1) mmol/L Chloride 99 (98-107) mmol/L Carbon Dioxide 28 (22-32) mmol/L BUN 24 H (9-20) mg/dL Creatinine 0.94 (0.66-1.25) mg/dL Estimated GFR > 60 (>60) mL/min BUN/Creatinine Ratio 25.5 H (6-22) Glucose 252 H (80-110) mg/dL Lactate 1.1 (0.7-2.1) mmol/L Calcium 8.8 (8.4-10.2) mg/dL Total Bilirubin 0.5 (0.2-1.3) mg/dL AST 20 (17-59) IU/L ALT 17 (<50) IU/L Alkaline Phosphatase 94 (38-126) U/L Total Protein 7.2 (6.3-8.2) g/dL Albumin 3.5 (3.5-5.0) g/dL Globulin 3.7 (1.7-4.1) g/dL Albumin/Globulin Ratio 0.9 L (1.0-2.8) Lipase 60 (23-300) U/L Procalcitonin 0.303 (<0.5) ng/mL Chlamy pneumoniae PCR (Not Detect) Adenovirus (PCR) (Not Detect) B. pertussis DNA (PCR) (Not Detect) B.parapertussis DNA PCR (Not Detecte) Coronavirus OC43 (PCR) (Not Detect) Coronavirus HKU1 (PCR) (Not Detect) Coronavirus 229E (PCR) (Not Detect) SARS-CoV-2 (PCR) (Negative) Coronavirus NL63 (PCR) (Not Detect) Human Metapneumovir PCR (Not Detect) Influenza A (RT-PCR) (NEGATIVE) Influenza Type A (PCR) (Not Detect) Influenza B (RT-PCR) (NEGATIVE) Influenza Type B (PCR) (Not Detect) M. pneumoniae (PCR) (Not Detect) Parainfluenza 1 (PCR) (Not Detect) Parainfluenza 2 (PCR) (Not Detect) Parainfluenza 3 (PCR) (Not Detect) Parainfluenza 4 (PCR) (Not Detect) RSV (PCR) (Negative) Entero/Rhino (PCR) (Not Detect) Imaging Data Chest x-ray: Radiologist's Impression: [address] [address] XRay Report Signed Patient: Blaze Dickinson MR#: [id number] : 1950 Acct:[id number] Age/Sex: 74 / M Date of Service: 05/05/24 Loc: ED Accession Number: [id number] Procedure: XR chest 1V Ordering Provider: Milagro Carnes D.O. PROCEDURE: XR CHEST 1V INDICATIONS: suspected sepsis TECHNIQUE: One view of the chest was acquired. COMPARISON: [facility], CR, XR CHEST 2V, 02/21/2024, 14:24. [facility], CR, XR CHEST 2V, 04/09/2023, 16:32. FINDINGS: Surgical changes and devices: None. Lungs and pleura: Left lower lobe consolidation. Small left pleural effusion suspected. No pneumothorax. Mediastinum: Mediastinal contours appear normal. Heart size is normal. Bones and chest wall: No suspicious bony lesions. Overlying soft tissues appear unremarkable. IMPRESSION: Left lower lobe consolidation concerning for pneumonia. Small left pleural effusion suspected. Dictated by: Mahesh Raines M.D. on 05/05/2024 at 18:02 Approved by: Mahesh Raines M.D. on 05/05/2024 at 18:05 ECG Data Attestation: I personally reviewed and interpreted this ECG as follows: Interpretation: Sinus tachycardia with rate of 101, no obvious ST segment elevation or depression changes. WV 142, QRS 112, QTC 482. MDM Narrative Medical decision making narrative: 74-year-old male with ongoing new round of chemotherapy for left chest mesothelioma, had previous rounds of chemotherapy June through September 2023 with reported good response to treatment, had been off chemotherapy but recently restarted with tumor recurrence, restart of chemotherapy 4 days ago IV regimen, now with fever today 102 reported. Normotensive, no tachypnea, normal room-air sat, lungs clear, no respiratory distress. Neutropenic precautions pending lab results. White blood cell count 81998 noted, no neutropenia confirmed. EKG in remaining blood tests unremarkable except for mildly elevated glucose 250. History of diabetes noted. Chest x-ray read as possible left lower lobe infiltrate, no dominant mass or definite postobstructive like changes, see radiology report. Blood cultures have been requested at triage in case of neutropenic fever, IV ceftriaxone, oral azithromycin. We will contact his oncology service to see if they have a preferred regimen for non neutropenic fever outpatient oral antibiotic. Patient agrees and is aware of call back from [facility] on-call oncology 2044, case discussed with PA covering for practice at [facility], advises coverage for routine community-acquired pneumonia in this setting, without neutropenia. Agrees with IV Rocephin and PO azithromycin, we will give cefdinir with azithromycin as an outpatient. Prescription for cefdinir and azithromycin sent to his pharmacy. Follow up with his oncology team advised. Return precautions discussed. Discharge Plan Departure Patient Disposition: Home Clinical Impression: Left lower lobe pneumonia, History of malignant mesothelioma Instructions: DI for Pneumonia -- Adult Activity Restrictions/Additional Instructions: History of mesothelioma that had previously been responsive to chemotherapy, off chemotherapy a number of months, restarted a few days ago, with fever today noted. Normal blood pressure and pulse and oxygenation, unremarkable lung exam. Screening studies were sent due to initial triage concerns about neutropenic fever. Lab tests showed normal white blood cell count, no neutropenia is present at this time. Chest x-ray ordered from triage showed lower lobe infiltrate, suspicious for pneumonia. Blood cultures were sent, IV ceftriaxone and oral azithromycin antibiotic were given. Case was discussed with on-call physician assistant golf course superintendent for the practice at [facility], to see if they preferred any specific regimen in this setting besides community-acquired pneumonia regimens. They advised to community-acquired pneumonia regimen. We will give further antibiotics with oral cefdinir and oral azithromycin course of antibiotics, prescription sent to your pharmacy. Take antibiotics as directed. Take full antibiotic course. Contact your oncology team later this week to coordinate further follow up with them or with your primary care provider. Return if you have increasing shortness of breath, or any concerns prior to this/nearest emergency department. Prescriptions: New cefdinir 300 mg capsule 300 mg PO BID 10 Days Qty: 20 0RF azithromycin 250 mg tablet See Rx Instructions PO .COMPLEX Qty: 6 0RF Rx Instructions: For 250 mg dose pack: take 500 mg today (day 1), then 250 mg for 4 days (days 2-5) No Action glimepiride 1 mg tablet 2 mg PO DAILY Qty: 180 3RF atorvastatin 10 mg tablet 10 mg PO QAM Qty: 90 3RF (DME) pen needle, diabetic [CareFine Pen Needle] 32 gauge x 3/16 needle See Rx Instructions .Route Qty: 100 3RF Rx Instructions: As directed to inject lantus solostar pioglitazone [Actos] 30 mg tablet 30 mg PO DAILY Qty: 90 3RF insulin glargine [Lantus Solostar U-100 Insulin] 100 unit/mL (3 mL) insulin pen 10 unit SUBCUT QPM Qty: 15 11RF tramadol 50 mg tablet 50 mg PO Q6H PRN (Reason: pain) Qty: 120 5RF polyethylene glycol 3350 [Miralax] 17 gram/dose powder 17 g PO QAM Referrals: Ej Espinoza DO [Primary Care Provider] - Stand Alone Forms: Patient Portal/API/Survey
[2024-05-05] MEDS: AZITHROMYCIN 250 MG TABLET 500 MG PO (19:12)
[2024-05-05] MEDS: cefTRIAXone 1,000 MG in SODIUM CHLORIDE 0.9% 100 ML 200 MG IV (19:13)
[2024-05-05 19:55] LABS: Adenovirus Not Detected (Not Detect); B. parapertussis Not Detected (Not Detecte); Bordetella pertussis Not Detected (Not Detect); Chlamydophila pneumoniae Not Detected (Not Detect); Coronavirus 229E Not Detected (Not Detect); Coronavirus HKU1 Not Detected (Not Detect); Coronavirus NL 63 Not Detected (Not Detect); Coronavirus OC43 Not Detected (Not Detect); Human Metapneumovirus Not Detected (Not Detect); Human Rhinovirus/Enterovirus Not Detected (Not Detect); Influenza A Not Detected (Not Detect); Influenza B Not Detected (Not Detect); Mycoplasma pneumoniae Not Detected (Not Detect); Parainfluenza Virus 1 Not Detected (Not Detect); Parainfluenza Virus 2 Not Detected (Not Detect); Parainfluenza Virus 3 Not Detected (Not Detect); Parainfluenza Virus 4 Not Detected (Not Detect); Respiratory Syncytial Virus Not Detected (Not Detect); SARS- CoV-2 Not Detected (Not Detecte)
[2024-05-05] MEDS: ONDANSETRON 4 MG/2 ML INJ IV (21:02)
[2024-05-05] MEDS: OXYCODONE IR 5 MG TABLET PO (21:02)
== END 2024-05-05 22:02 | disposition home or self-care (01) ==
PROVIDERS: Emergency Medicine; Emergency Provider Emergency Medicine; PCP Family Medicine
DX: J18.9 Pneumonia, unspecified organism (principal); C45.9 Mesothelioma, unspecified; Z92.21 Personal history of antineoplastic chemotherapy; E11.9 Type 2 diabetes mellitus without complications; Z79.4 Long term (current) use of insulin; I10 Essential (primary) hypertension; E78.5 Hyperlipidemia, unspecified
CPT/HCPCS: 0241U; 36415; 71045; 80053; 83605; 83690; 84145; 85025; 85610; 85730; 87040; 87633; 93005; 96365; 96375; 99284; J0696; J2405

== ENCOUNTER → 2024-05-26 10:20 | Outpatient (CLI) | payer MEDICARE, SELFPAY ==
[2024-05-26 11:13] LABS: Hemoglobin A1C% w Est Avg Glu 6.8 % (4.0-6.0)
== END ==
LOC: LAB 10:21
PROVIDERS: PCP Family Medicine; Referring Provider Family Medicine; Visit Provider Family Medicine
DX: E11.65 Type 2 diabetes mellitus with hyperglycemia (principal)
CPT/HCPCS: 36415; 83036